=== PATIENT | female | born 2000 | race Caucasian/White ===

== ENCOUNTER 2020-01-07 12:53 | Emergency (ER) | payer OTHER, MEDICAID, SELFPAY ==
[2020-01-07 12:59] VITALS: BP 136/88; PULSE 81; RESP 28; TEMP 36.4; O2SAT 100
[2020-01-07] MEDS: ONDANSETRON 4 MG/2 ML INJ IV ×2 (13:19→16:45)
[2020-01-07] MEDS: SODIUM CHLORIDE 0.9% 1,000 ML 1000 ML IV (13:19)
[2020-01-07] MEDS: PANTOPRAZOLE 40 MG VIAL IV (13:20)
[2020-01-07 13:22] LABS: Add Manual Diff / Slide Review NO; Basophils Absolute Auto 0 /uL (0-100); Basophils Percent Auto 0.4 % (0-2); Eosinophils Absolute Auto 600 /uL (0-450); Eosinophils Percent Auto 5.5 % (2-4); Hematocrit 44.5 % (36-46); Hemoglobin 14.6 g/dL (12.0-16.0); Lymphocytes Absolute Auto 2400 /uL (1100-4500); Lymphocytes Percent Auto 21.5 % (25-40); Mean Corpuscular HGB Conc 32.9 % (30-36); Mean Corpuscular Hemoglobin 29.7 PG (26-34); Mean Corpuscular Volume 90.3 fL (80-100); Monocytes Absolute Auto 700 /uL (0-900); Monocytes Percent Auto 6.3 % (3-14); Neutrophils Absolute Auto 7600 /uL (1500-7000); Neutrophils Percent Auto 66.3 % (50-75); Platelet Count 373 X10^3/uL (150-400); Red Blood Cell Count 4.93 X10^6/uL (4.0-5.2); Red Cell Distribution Width 13.9 % (11.6-14.8); White Blood Cell Count 11.4 X10^3/uL (4.5-11.0)
[2020-01-07 13:25] VITALS: BP 127/73; PULSE 84; RESP 20; O2SAT 99
[2020-01-07 13:33] LABS: Prothrombin Time 11.9 SECONDS (10.1-12.7)
[2020-01-07 13:35] LABS: PTT Partial Thromboplastin Tim 34 SECONDS (26.4-36.2)
[2020-01-07 13:36] LABS: Albumin 4.9 g/dL (3.5-5.0); Albumin Globulin Ratio 1.3 (1.0-2.8); Alkaline Phosphatase 107 U/L (38-126); Aspartate Aminotransferase 33 IU/L (14-36); BUN Creatinine Ratio 9.2 (6-22); Bilirubin Total 0.7 mg/dL (0.2-1.3); Blood Urea Nitrogen 6 mg/dL (7-17); Calcium 10.2 mg/dL (8.4-10.2); Carbon Dioxide 16 mmol/L (22-32); Chloride 108 mmol/L (98-107); Estimated Glomerular Filt Rate > 60.0 mL/min (>60); Globulin 3.8 g/dL (1.7-4.1); Glucose 147 mg/dL (70-100); Lipase 41 U/L (23-300); Potassium 4.2 mmol/L (3.4-5.1); Sodium 141 mmol/L (137-145); Total Protein 8.7 g/dL (6.3-8.2)
[2020-01-07 13:42] LABS: Alanine Aminotransferase 30 IU/L (<35); HEMOLYSIS 24 (0-50)
[2020-01-07] MEDS: METOCLOPRAMIDE 10 MG/2 ML INJ IV (13:49)
[2020-01-07] MEDS: diphenhydrAMINE 50 MG/ML VIAL 25 MG IV ×2 (13:49→18:23)
[2020-01-07] MEDS: LORazepam 2 MG/ML INJ 1 MG IV (14:26)
[2020-01-07 14:48] LABS: Creatine Kinase 79 U/L (30-135)
[2020-01-07 15:00] LABS: Pregnancy Test Serum,Qual Negative (Negative)
[2020-01-07 15:01] LABS: Troponin I < 0.012 ng/mL (0.01-0.034)
--- NOTE | 2020-01-07 15:02 | DI.RAD.S_ITS ---
PROCEDURE: XR CHEST 1V INDICATIONS: chest pain, nausea/vomiting TECHNIQUE: One view of the chest was acquired. COMPARISON: [facility], CHEST 2 VIEW, 09/21/2014, 0:31. [facility], CHEST 1 VIEW, 09/22/2014, 6:54. FINDINGS: Surgical changes and devices: None. Lungs and pleura: An incomplete inspiratory result is noted, causing a crowded appearance to the lung markings. No focal infiltrates are seen. No pneumothorax or significant pleural effusions are seen. Mediastinum: Mediastinal contours appear normal. Heart size is normal. Bones and chest wall: No suspicious bony lesions. Overlying soft tissues appear unremarkable. IMPRESSION: Limited portable chest examination, without a significant cardiopulmonary abnormality identified. Dictated by: Marlon Mae M.D. on 01/07/2020 at 14:19 Approved by: Marlon Mae M.D. on 01/07/2020 at 14:19
--- NOTE | 2020-01-07 15:03 | ED_ITS ---
HPI - Abdominal Pain <Urbano Lemon [facility] - Last Filed: 01/07/20 23:49> General Chief Complaint: Abdominal Pain Stated Complaint: intestinal pain,heart hurts Time Seen by Provider: 01/07/20 13:02 Source: patient Mode of arrival: Ambulatory Limitations: no limitations History of Present Illness HPI narrative: This is a 19-year-old female, who vapes nicotine and regularly dabbing marijuana concentrates presents to ED with mother with chief complain of nausea and emesis for 4 times since this morning at 8:00 a.m. with chest/epigastric throbbing pain, ripping out like low mid abdominal pain. Emesis was consist of foamy mucus and bile without blood. Patient denies previous history of similar symptoms. Patient denies fever but reports chills. Patient states has not eating solid foods after midnight after she tried crackers. Patient has significant medical history as pneumonia at age 14. LMP was 2 weeks ago which was normal flow. Patient denies urinary symptoms such as hematuria, frequency, urgency, dysuria or back pain. Patient denies diarrhea, recent respiratory illness, known exposure to Covid. Last bowel movement before coming into ED which was soft consistency. Related Data Previous Rx's Medication Instructions Recorded ondansetron 4 mg PO QID PRN #10 tab 01/07/20 promethazine 25 mg WY Q6H PRN #1 each 01/07/20 Allergies Allergy/AdvReac Type Severity Reaction Status Date / Time No Known Drug Allergies Allergy Verified 01/07/20 13:02 Review of Systems <Urbano Lemon [facility] - Last Filed: 01/07/20 23:49> Review of Systems Narrative: General: Denies fever, (+) chills, fatigue, malaise, sweats. HEENT: Denies sinus pain, ear pain, sore throat, difficulty swallowing, dizziness. Respiratory: Denies dyspnea, cough, wheezing, hemoptysis, sputum. Cardiovascular: See HPI. Gastrointestinal: See HPI : Denies dysuria, frequency, incontinence, hematuria, urinary retention. Musculoskeletal: Denies weakness, joint pain or bony pain. Skin: Denies rash, skin lesions, or other. Neurologic: Denies weakness, headache, numbness, change in speech, confusion, seizures, incoordination. Psychiatric: No concerning psychosocial issues. 12-point review of systems is negative except for those stated above. Patient History <NANCY Steinberg - Last Filed: 01/07/20 23:49> Medical History Pneumonia (Acute) Social History Smoking Status: Current every day smoker Smoking Status: Current every day smoker tobacco type: vaping alcohol intake frequency: 0-2 drinks per day Substance Use Type: marijuana Exam <NANCY Steinberg - Last Filed: 01/07/20 23:49> Narrative Exam Narrative: GEN: Alert, oriented x 3, ill appearing and nourished, and in moderate distress. Hyperventilation, pale, anxious, in cold sweats while dry heaving. Head: Normal cephalic, atraumatic. No scalp or temporal tenderness, palpable mass or rash. EYES: Pupils are equal, round, and reactive to light and accommodation. Extraocular muscles are intact bilaterally. There is no subconjunctival hemorrhage, exudate and sclera non-icteric. ENT: Hearing grossly intact. Nose without bleeding, purulent discharge. Mucous membrane dry, no mucosal lesion. Throat without erythema, tonsillar hypertrophy or exudate. Uvula in midline, airway patent. Neck: Trachea in midline. No JVD, non-tender without lymphadenopathy. No masses or thyroid megaly. Supple, non-tender and no meningeal signs. CARDIAC: Normal regular rate and rhythm without murmurs, gallops, or rubs. No chest wall tenderness. No peripheral edema, cyanosis or pallor. Capillary ref ill is less than 2 seconds. RESPIRATORY: Lungs are clear to auscultate bilaterally. No cough, wheezes, rales, or rhonchi. No stridor, respiratory distress, increase work of breathing, or accessary muscle used. ABD: Abdomen soft, tender to palpate in abdomen and non-distended. No guarding or rebound tenderness to palpate. Bowel sounds are normal in all 4 quadrants. There is no palpable masses or organomegaly. EXT: Full painless ROM of all extremities with no loss of sensation, strength, effusion or edema. SKIN: Pale, cool, diaphoresis. No erythema, lesions or rash over visible areas. BACK: Nontender without deformity or crepitance. No flank tenderness. NEUROLOGICAL: Alert and oriented to place, time and person. Sensation and motor function intact bilaterally. No facial droops, dysphasia. PSYCHIATRIC: Anxious without hallucinations. Cooperative. Initial Vital Signs Initial Vital Signs: Vital Signs Temperature 97.5 F L 01/07/20 12:59 Pulse Rate 81 01/07/20 12:59 Respiratory Rate 28 H 01/07/20 12:59 Blood Pressure 136/88 01/07/20 12:59 Pulse Oximetry 100 01/07/20 12:59 <Una Valentine MD - Last Filed: 01/08/20 07:22> Initial Vital Signs Initial Vital Signs: Vital Signs Temperature 97.5 F L 01/07/20 12:59 Pulse Rate 81 01/07/20 12:59 Respiratory Rate 28 H 01/07/20 12:59 Blood Pressure 136/88 01/07/20 12:59 Pulse Oximetry 100 01/07/20 12:59 Scores <NANCY Steinberg - Last Filed: 01/07/20 23:49> GCS Vaishali coma scale eye opening: Spontaneous Vaishali coma scale verbal response: Orientated [place] coma scale motor response: Obey commands Vaishali coma scale total score: 15 Course <NANCY Steinberg - Last Filed: 01/07/20 23:49> Course Course Narrative: Orders Ordered: Discontinued Medications Diphenhydramine HCl (Benadryl) 25 mg IV NOW ONE Stop: 01/07/20 13:44 Last Admin: 01/07/20 13:49 Dose: 25 mg Documented by: MELVIN Diphenhydramine HCl (Benadryl) 25 mg IV NOW ONE Stop: 01/07/20 18:08 Last Admin: 01/07/20 18:23 Dose: 25 mg Documented by: MARYONER Haloperidol (Haldol) 5 mg IV NOW ONE Stop: 01/07/20 18:08 Last Admin: 01/07/20 18:23 Dose: 5 mg Documented by: MELVIN Sodium Chloride (Normal Saline 0.9%) 1,000 mls @ 1,000 mls/hr IV BOLUS ONE Stop: 01/07/20 14:11 Last Infusion: 01/07/20 14:24 Dose: 0 mls/hr Documented by: Admin: 01/07/20 13:19 Dose: 1,000 mls/hr Documented by: MAXIMILIAN Sodium Chloride (Normal Saline 0.9%) 500 mls @ 1,000 mls/hr IV BOLUS ONE Stop: 01/07/20 18:36 Last Admin: 01/07/20 18:24 Dose: 1,000 mls/hr Documented by: MELVIN Lorazepam (Ativan) 1 mg IV NOW ONE Stop: 01/07/20 14:21 Last Admin: 01/07/20 14:26 Dose: 1 mg Documented by: GREGG Metoclopramide HCl (Reglan) 10 mg IV NOW ONE Stop: 01/07/20 13:44 Last Admin: 01/07/20 13:49 Dose: 10 mg Documented by: MELVIN Ondansetron HCl (Zofran) 4 mg IV NOW ONE Stop: 01/07/20 13:04 Last Admin: 01/07/20 13:19 Dose: 4 mg Documented by: MAXIMILIAN Ondansetron HCl (Zofran) 4 mg IV NOW ONE Stop: 01/07/20 15:42 Last Admin: 01/07/20 16:45 Dose: 4 mg Documented by: GREGG Pantoprazole Sodium (Protonix) 40 mg IV NOW ONE Stop: 01/07/20 13:16 Last Admin: 01/07/20 13:20 Dose: 40 mg Documented by: MAXIMILIAN Reevaluation(s) Reevaluation #1: The patient reports chest and abd pain improved to 1/10 and nausea much improved Time: 15:00 Reevaluation #2: The patient has recurring vomiting at 1530. Ordered 2nd dose of Zofran and US of abdomen to r/u gallbladder pathology Time: 15:30 Vital Signs Vital signs: Vital Signs - 8 hr 01/07/20 17:45 01/07/20 19:21 Pulse Rate 89 85 Respiratory Rate 23 20 Blood Pressure [Left Arm] 119/77 130/68 Pulse Oximetry 98 98 <Una Valentine MD - Last Filed: 01/08/20 07:22> Orders Ordered: Discontinued Medications Diphenhydramine HCl (Benadryl) 25 mg IV NOW ONE Stop: 01/07/20 13:44 Last Admin: 01/07/20 13:49 Dose: 25 mg Documented by: MELVIN Diphenhydramine HCl (Benadryl) 25 mg IV NOW ONE Stop: 01/07/20 18:08 Last Admin: 01/07/20 18:23 Dose: 25 mg Documented by: MELVIN Haloperidol (Haldol) 5 mg IV NOW ONE Stop: 01/07/20 18:08 Last Admin: 01/07/20 18:23 Dose: 5 mg Documented by: MELVIN Sodium Chloride (Normal Saline 0.9%) 1,000 mls @ 1,000 mls/hr IV BOLUS ONE Stop: 01/07/20 14:11 Last Infusion: 01/07/20 14:24 Dose: 0 mls/hr Documented by: Admin: 01/07/20 13:19 Dose: 1,000 mls/hr Documented by: MAXIMILIAN Sodium Chloride (Normal Saline 0.9%) 500 mls @ 1,000 mls/hr IV BOLUS ONE Stop: 01/07/20 18:36 Last Admin: 01/07/20 18:24 Dose: 1,000 mls/hr Documented by: MELVIN Lorazepam (Ativan) 1 mg IV NOW ONE Stop: 01/07/20 14:21 Last Admin: 01/07/20 14:26 Dose: 1 mg Documented by: GREGG Metoclopramide HCl (Reglan) 10 mg IV NOW ONE Stop: 01/07/20 13:44 Last Admin: 01/07/20 13:49 Dose: 10 mg Documented by: MELVIN Ondansetron HCl (Zofran) 4 mg IV NOW ONE Stop: 01/07/20 13:04 Last Admin: 01/07/20 13:19 Dose: 4 mg Documented by: MAXIMILIAN Ondansetron HCl (Zofran) 4 mg IV NOW ONE Stop: 01/07/20 15:42 Last Admin: 01/07/20 16:45 Dose: 4 mg Documented by: GREGG Pantoprazole Sodium (Protonix) 40 mg IV NOW ONE Stop: 01/07/20 13:16 Last Admin: 01/07/20 13:20 Dose: 40 mg Documented by: MAXIMILIAN Vital Signs Vital signs: Vital Signs - 8 hr 01/07/20 17:45 01/07/20 19:21 Pulse Rate 89 85 Respiratory Rate 23 20 Blood Pressure [Left Arm] 119/77 130/68 Pulse Oximetry 98 98 MDM - Abdominal Pain <Urbano MorinCoryRomarioNANCY - Last Filed: 01/07/20 23:49> Differential Diagnosis Differential diagnosis: Likely gastroenteritis, pancreatitis, small bowel obstruction and other (Cholecystitis, cannabinoid hyperemesis syndrome) Medical Records Attestation: I reviewed the patient's medical records. Lab Data Attestation: I reviewed the patient's lab results. Result diagrams: 01/07/20 13:05 01/07/20 13:05 Labs: Lab Results 01/07/20 01/07/20 01/07/20 Range/Units 13:05 13:05 13:05 WBC 11.4 H (4.5-11.0) X10^3/uL RBC 4.93 (4.0-5.2) X10^6/uL Hgb 14.6 (12.0-16.0) g/dL Hct 44.5 (36-46) % MCV 90.3 (80-100) fL MCH 29.7 (26-34) PG MCHC 32.9 (30-36) % RDW 13.9 (11.6-14.8) % Plt Count 373 (150-400) X10^3/uL Neut % (Auto) 66.3 (50-75) % Lymph % (Auto) 21.5 L (25-40) % Humphreys % (Auto) 6.3 (3-14) % Eos % (Auto) 5.5 H (2-4) % Baso % (Auto) 0.4 (0-2) % Neut # (Auto) 7600 H (4069-4902) /uL Lymph # (Auto) 2400 (7869-6107) /uL Humphreys # (Auto) 700 (0-900) /uL Eos # (Auto) 600 H (0-450) /uL Baso # (Auto) 0 (0-100) /uL PT 11.9 (10.1-12.7) SECONDS INR 1.0 (0.9-1.3) APTT 34 (26.4-36.2) SECONDS Sodium 141 (137-145) mmol/L Potassium 4.2 (3.4-5.1) mmol/L Chloride 108 H (98-107) mmol/L Carbon Dioxide 16 L (22-32) mmol/L BUN 6 L (7-17) mg/dL Creatinine 0.65 (0.52-1.04) mg/dL Estimated GFR > 60.0 (>60) mL/min BUN/Creatinine Ratio 9.2 (6-22) Glucose 147 H (70-100) mg/dL Calcium 10.2 (8.4-10.2) mg/dL Total Bilirubin 0.7 (0.2-1.3) mg/dL AST 33 (14-36) IU/L ALT 30 (<35) IU/L Alkaline Phosphatase 107 (38-126) U/L Total Creatine Kinase (30-135) U/L CK-MB (CK-2) CK-MB (CK-2) Rel Index Troponin I (0.01-0.034) ng/mL Total Protein 8.7 H (6.3-8.2) g/dL Albumin 4.9 (3.5-5.0) g/dL Globulin 3.8 (1.7-4.1) g/dL Albumin/Globulin Ratio 1.3 (1.0-2.8) Lipase 41 (23-300) U/L Serum , Qual (Negative) 01/07/20 01/07/20 Range/Units 13:05 13:05 WBC (4.5-11.0) X10^3/uL RBC (4.0-5.2) X10^6/uL Hgb (12.0-16.0) g/dL Hct (36-46) % MCV (80-100) fL MCH (26-34) PG MCHC (30-36) % RDW (11.6-14.8) % Plt Count (150-400) X10^3/uL Neut % (Auto) (50-75) % Lymph % (Auto) (25-40) % Humphreys % (Auto) (3-14) % Eos % (Auto) (2-4) % Baso % (Auto) (0-2) % Neut # (Auto) (1869-9359) /uL Lymph # (Auto) (4255-9478) /uL Humphreys # (Auto) (0-900) /uL Eos # (Auto) (0-450) /uL Baso # (Auto) (0-100) /uL PT (10.1-12.7) SECONDS INR (0.9-1.3) APTT (26.4-36.2) SECONDS Sodium (137-145) mmol/L Potassium (3.4-5.1) mmol/L Chloride (98-107) mmol/L Carbon Dioxide (22-32) mmol/L BUN (7-17) mg/dL Creatinine (0.52-1.04) mg/dL Estimated GFR (>60) mL/min BUN/Creatinine Ratio (6-22) Glucose (70-100) mg/dL Calcium (8.4-10.2) mg/dL Total Bilirubin (0.2-1.3) mg/dL AST (14-36) IU/L ALT (<35) IU/L Alkaline Phosphatase (38-126) U/L Total Creatine Kinase 79 (30-135) U/L CK-MB (CK-2) TNP CK-MB (CK-2) Rel Index TNP Troponin I < 0.012 (0.01-0.034) ng/mL Total Protein (6.3-8.2) g/dL Albumin (3.5-5.0) g/dL Globulin (1.7-4.1) g/dL Albumin/Globulin Ratio (1.0-2.8) Lipase (23-300) U/L Serum , Qual Negative (Negative) Point of care testing: Point of Care Testing Test Results Negative Urine Dip Bedside Urine Glucose Negative Bedside Urine Bilirubin - Negative Bedside Urine Ketone ++ 40 Urine Specific Garretson 1.015 Bedside Urine pH 7.5 Bedside Urine Protein +/- 15 Bedside Urine Urobilinogen - Negative Bedside Urine Nitrite - Negative Bedside Urine Leukocytes - Negative Esterase Imaging Data Chest x-ray: Radiologist's Impression: [address] [address] XRay Report Signed Patient: Angelica Cannon CMR#: [id number] : 2000Acct:[id number] Age/Sex: te of Service: 01/07/20 Loc: ED Accession Number: [id number] Procedure: XR chest 1V Ordering Provider: Urbano Lemon PROCEDURE: XR CHEST 1V INDICATIONS: chest pain, nausea/vomiting TECHNIQUE: One view of the chest was acquired. COMPARISON: [facility], CHEST 2 VIEW, 09/21/2014, 0:31. [facility], CHEST 1 VIEW, 09/22/2014, 6:54. FINDINGS: Surgical changes and devices: None. Lungs and pleura: An incomplete inspiratory result is noted, causing a crowded appearance to the lung markings. No focal infiltrates are seen. No pneumo thorax or significant pleural effusions are seen. Mediastinum: Mediastinal contours appear normal. Heart size is normal. Bones and chest wall: No suspicious bony lesions. Overlying soft tissues appear unremarkable. IMPRESSION: Limited portable chest examination, without a significant cardiopulmonary abnormality identified. Dictated by: Marlon Mae M.D. on 01/07/2020 at 14:19 Approved by: Marlon Mae M.D. on 01/07/2020 at 14:19 US - abdomen: My Impression: [place] [address] Ultrasound Report Signed Patient: Angelica Cannon CMR#: [id number] : 2000Acct:[id number] Age/Sex: 19 / FDate of Service: 01/07/20 Loc: ED Accession Number: [id number] Procedure: US abdomen limited Ordering Provider: Urbano Lemon PROCEDURE: US ABDOMEN LIMITED INDICATIONS: CHEST AND ABDOMINAL PAIN TECHNIQUE: Real-time focused scanning was performed of the abdomen, with image documentation. COMPARISON: [facility], XR CHEST 1V, 01/07/2020, 15:07. FINDINGS: The liver is normal in size and demonstrates no focal lesions. No findings of gallstones or sludge are seen. The gallbladder wall is not thickened, measuring 3 mm or less. No specific pericholecystic fluid is seen. The sonographic Argueta sign is negative. There is no biliary dilatation, the common bile duct measures 4 mm. No significant pancreatic abnormality is seen on these images. No free fluid is seen. IMPRESSION: The gallbladder demonstrates a normal sonographic appearance. No biliary dilatation is seen. Dictated by: Marlon Mae M.D. on 01/07/2020 at 15:36 Approved by: Marlon Mae M.D. on 01/07/2020 at 15:36 ECG Data Attestation: I personally reviewed and interpreted this ECG as follows: Prior ECG tracings: not available for review Interpretation: Normal sinus rhythm rate at 79. WY interval 150, QRS duration 78, QT/QTC 398/456. Normal axis. No ST elevation, nonspecific T-wave abnormality. MDM Narrative Medical decision making narrative: This is a 19-year-old female who presents to ED with chief complain of nausea and vomiting, epigastric, chest and mid abdominal discomfort. Patient states has not eaten since midnight last night. Patient appears to be in distress with vomiting, hyperventilation, pale and diaper restless when arrived in ED. EKG was normal sinus rhythm with nonspecific T-waves rate at 79. Urine test was negative for and positive for ketones without infections. Patient has mild leukocytosis of 11.4 unremarkable chemistries except mildly low carbon dioxide of 16 which is likely due to hyperventilation. Serum glucose was 147. Cardiac enzymes were negative. Normal lipase with normal liver function test. No indications of dehydration. Patient was hydrated with normal saline, IV Zofran and pantoprazole initially. Nausea was not relieved and patient was medicated with IV Benadryl and Reglan. For short. Patient reports improved symptoms and when patient was ready for discharge, patient had recurring nausea and vomiting with bile appearing liquid. Ultrasound test was ordered to rule out cholecystitis and it indicated normal findings without biliary dilation and no significant pancreatic abnormality was appreciated. Patient was given 2nd dose of Zofran for recurring nausea and vomiting which was ineffective to treat this. When patient finally received IV Benadryl and Haldol, patient was calm, able to rest and to tolerate small sips of water shortly after. Patient is afebrile with vital signs within normal limits. Cannabinoid hyperemesis syndrome was considered and advised to stop using dabbing marijuana. Patient discharged to home with Zofran ODT and Phenergan WY for recurring symptoms and return precautions were discussed. Patient and mother verbalized understanding and agreement with treatment plan. <Una Valentine MD - Last Filed: 01/08/20 07:22> Lab Data Labs: Lab Results 01/07/20 01/07/20 01/07/20 Range/Units 13:05 13:05 13:05 WBC 11.4 H (4.5-11.0) X10^3/uL RBC 4.93 (4.0-5.2) X10^6/uL Hgb 14.6 (12.0-16.0) g/dL Hct 44.5 (36-46) % MCV 90.3 (80-100) fL MCH 29.7 (26-34) PG MCHC 32.9 (30-36) % RDW 13.9 (11.6-14.8) % Plt Count 373 (150-400) X10^3/uL Neut % (Auto) 66.3 (50-75) % Lymph % (Auto) 21.5 L (25-40) % Humphreys % (Auto) 6.3 (3-14) % Eos % (Auto) 5.5 H (2-4) % Baso % (Auto) 0.4 (0-2) % Neut # (Auto) 7600 H (5975-1621) /uL Lymph # (Auto) 2400 (7384-4006) /uL Humphreys # (Auto) 700 (0-900) /uL Eos # (Auto) 600 H (0-450) /uL Baso # (Auto) 0 (0-100) /uL PT 11.9 (10.1-12.7) SECONDS INR 1.0 (0.9-1.3) APTT 34 (26.4-36.2) SECONDS Sodium 141 (137-145) mmol/L Potassium 4.2 (3.4-5.1) mmol/L Chloride 108 H (98-107) mmol/L Carbon Dioxide 16 L (22-32) mmol/L BUN 6 L (7-17) mg/dL Creatinine 0.65 (0.52-1.04) mg/dL Estimated GFR > 60.0 (>60) mL/min BUN/Creatinine Ratio 9.2 (6-22) Glucose 147 H (70-100) mg/dL Calcium 10.2 (8.4-10.2) mg/dL Total Bilirubin 0.7 (0.2-1.3) mg/dL AST 33 (14-36) IU/L ALT 30 (<35) IU/L Alkaline Phosphatase 107 (38-126) U/L Total Creatine Kinase (30-135) U/L CK-MB (CK-2) CK-MB (CK-2) Rel Index Troponin I (0.01-0.034) ng/mL Total Protein 8.7 H (6.3-8.2) g/dL Albumin 4.9 (3.5-5.0) g/dL Globulin 3.8 (1.7-4.1) g/dL Albumin/Globulin Ratio 1.3 (1.0-2.8) Lipase 41 (23-300) U/L Serum , Qual (Negative) 01/07/20 01/07/20 Range/Units 13:05 13:05 WBC (4.5-11.0) X10^3/uL RBC (4.0-5.2) X10^6/uL Hgb (12.0-16.0) g/dL Hct (36-46) % MCV (80-100) fL MCH (26-34) PG MCHC (30-36) % RDW (11.6-14.8) % Plt Count (150-400) X10^3/uL Neut % (Auto) (50-75) % Lymph % (Auto) (25-40) % Humphreys % (Auto) (3-14) % Eos % (Auto) (2-4) % Baso % (Auto) (0-2) % Neut # (Auto) (0128-9753) /uL Lymph # (Auto) (7053-9116) /uL Humphreys # (Auto) (0-900) /uL Eos # (Auto) (0-450) /uL Baso # (Auto) (0-100) /uL PT (10.1-12.7) SECONDS INR (0.9-1.3) APTT (26.4-36.2) SECONDS Sodium (137-145) mmol/L Potassium (3.4-5.1) mmol/L Chloride (98-107) mmol/L Carbon Dioxide (22-32) mmol/L BUN (7-17) mg/dL Creatinine (0.52-1.04) mg/dL Estimated GFR (>60) mL/min BUN/Creatinine Ratio (6-22) Glucose (70-100) mg/dL Calcium (8.4-10.2) mg/dL Total Bilirubin (0.2-1.3) mg/dL AST (14-36) IU/L ALT (<35) IU/L Alkaline Phosphatase (38-126) U/L Total Creatine Kinase 79 (30-135) U/L CK-MB (CK-2) TNP CK-MB (CK-2) Rel Index TNP Troponin I < 0.012 (0.01-0.034) ng/mL Total Protein (6.3-8.2) g/dL Albumin (3.5-5.0) g/dL Globulin (1.7-4.1) g/dL Albumin/Globulin Ratio (1.0-2.8) Lipase (23-300) U/L Serum , Qual Negative (Negative) Point of care testing: Point of Care Testing Test Results Negative Urine Dip Bedside Urine Glucose Negative Bedside Urine Bilirubin - Negative Bedside Urine Ketone ++ 40 Urine Specific Garretson 1.015 Bedside Urine pH 7.5 Bedside Urine Protein +/- 15 Bedside Urine Urobilinogen - Negative Bedside Urine Nitrite - Negative Bedside Urine Leukocytes - Negative Esterase Discharge Plan Departure Patient Disposition: Home Clinical Impression: Nausea & vomiting Qualifiers: Vomiting type: bilious vomiting Qualified Code(s): R11.14 - Bilious vomiting Abdominal pain Qualifiers: Abdominal location: epigastric Qualified Code(s): R10.13 - Epigastric pain Discharge Date/Time: 01/07/20 19:28 Instructions: DI for Vomiting -- Adult, DI for Epigastric Pain Activity Restrictions/Additional Instructions: You have been diagnosed with [nausea, vomiting, epigastric pain. Lab test and ultrasound test for upper abdomen was unremarkable. You were hydrated with normal saline. You were given multiple doses of various anti nausea medication and pantoprazole while in ED. you are able to tolerate ice chips and small amount of liquid with up vomiting before discharged to home. Please stop using marijuana I think your symptoms is highly related to regular marijuana use.]. What to do: *Take your medications as directed. Zofran as needed for vomiting every 6 hours. You can also use Phenergan per rectum as needed for nausea and vomiting. Phenergan cause drowsiness so please take precaution not to drive, drink alcohol or operate heavy equipments. Phenergan and Zofran medication have been transmitted to [facility] in [place]. Please hydrate adequately with small sips frequently when her nausea is controlled. *Follow up with your primary care provider in 2-3 days, call for an appointment. Your provided with [facility] phone number to elect PCP. Let them know you were seen in the ED and that we asked you to be seen in follow up. *Return to ED if you have any new, worsening, or concerning symptoms, such as [chest pain, breathing difficulty, fever, increasing pain, unable to tolerate fluids or any acute concerns]. Prescriptions: New ondansetron 4 mg tablet,disintegrating 4 mg PO QID PRN (Reason: nausea and vomiting) Qty: 10 RF: 0 promethazine 25 mg suppository 25 mg WY Q6H PRN (Reason: nausea and vomiting) Qty: 1 RF: 0 Referrals: [facility] [Outside]
--- NOTE | 2020-01-07 15:41 | DI.US.S_ITS ---
PROCEDURE: US ABDOMEN LIMITED INDICATIONS: CHEST AND ABDOMINAL PAIN TECHNIQUE: Real-time focused scanning was performed of the abdomen, with image documentation. COMPARISON: [facility], CR, XR CHEST 1V, 01/07/2020, 15:07. FINDINGS: The liver is normal in size and demonstrates no focal lesions. No findings of gallstones or sludge are seen. The gallbladder wall is not thickened, measuring 3 mm or less. No specific pericholecystic fluid is seen. The sonographic Argueta sign is negative. There is no biliary dilatation, the common bile duct measures 4 mm. No significant pancreatic abnormality is seen on these images. No free fluid is seen. IMPRESSION: The gallbladder demonstrates a normal sonographic appearance. No biliary dilatation is seen. Dictated by: Marlon Mae M.D. on 01/07/2020 at 15:36 Approved by: Marlon Mae M.D. on 01/07/2020 at 15:36
--- NOTE | 2020-01-07 17:02 | PC.NURSE ---
right IV w/ large infiltration. IV removed.
[2020-01-07 17:45] VITALS: BP 119/77; PULSE 89; RESP 23; O2SAT 98
[2020-01-07] MEDS: HALOPERIDOL 5 MG/ML VIAL IV (18:23)
[2020-01-07] MEDS: SODIUM CHLORIDE 0.9% 500 ML 1000 ML IV (18:24)
[2020-01-07 19:21] VITALS: BP 130/68; PULSE 85; RESP 20; O2SAT 98
--- NOTE | 2020-01-07 19:26 | PC.NURSE ---
IV access was started at 1800 to the left ac, discontinued at discharge.
--- NOTE | 2020-01-07 19:30 | PC.NURSE ---
pt was able to keep ice chips and potato chips down that her mom gave her.
== END 2020-01-07 19:28 | disposition home or self-care (01) ==
PROVIDERS: Emergency Provider Nurse Practitioner Family
DX: R11.14 Bilious vomiting (principal); R10.13 Epigastric pain; R07.9 Chest pain, unspecified; F17.290 Nicotine dependence, other tobacco product, uncomplicated; F12.90 Cannabis use, unspecified, uncomplicated
CPT/HCPCS: 36415; 71045; 76705; 80053; 81003; 81025; 82550; 83690; 84484; 84703; 85025; 85610; 85730; 93005; 96361; 96374; 96375; 96376; 99285; C9113; J1200; J1630; J2060; J2405; J2765

== ENCOUNTER 2020-01-09 13:30 | Emergency (ER) | payer OTHER, MEDICAID, SELFPAY ==
[2020-01-09] VITALS (8 sets, daily range): BP systolic 119–134; BP diastolic 69–110; PULSE 69–100; RESP 12–41; TEMP 36.4; O2SAT 96–100
[2020-01-09] MEDS: diphenhydrAMINE 50 MG/ML VIAL IV (14:05)
[2020-01-09] MEDS: PANTOPRAZOLE 40 MG VIAL IV (14:05)
[2020-01-09 14:07] LABS: Add Manual Diff / Slide Review NO; Basophils Absolute Auto 0 /uL (0-100); Basophils Percent Auto 0.3 % (0-2); Eosinophils Absolute Auto 0 /uL (0-450); Eosinophils Percent Auto 0.1 % (2-4); Hematocrit 42.1 % (36-46); Hemoglobin 14.3 g/dL (12.0-16.0); Lymphocytes Absolute Auto 900 /uL (1100-4500); Lymphocytes Percent Auto 6.9 % (25-40); Mean Corpuscular HGB Conc 33.9 % (30-36); Mean Corpuscular Hemoglobin 30.2 PG (26-34); Mean Corpuscular Volume 89.1 fL (80-100); Monocytes Absolute Auto 400 /uL (0-900); Neutrophils Absolute Auto 11600 /uL (1500-7000); Neutrophils Percent Auto 89.7 % (50-75); Platelet Count 339 X10^3/uL (150-400); Red Blood Cell Count 4.72 X10^6/uL (4.0-5.2); Red Cell Distribution Width 13.9 % (11.6-14.8); White Blood Cell Count 12.9 X10^3/uL (4.5-11.0)
[2020-01-09] MEDS: SODIUM CHLORIDE 0.9% 1,000 ML 1000 ML IV ×2 (14:07→16:14)
[2020-01-09 14:18] LABS: Albumin 4.9 g/dL (3.5-5.0); Albumin Globulin Ratio 1.4 (1.0-2.8); Alkaline Phosphatase 100 U/L (38-126); Amylase 72 U/L (30-110); Aspartate Aminotransferase 33 IU/L (14-36); BUN Creatinine Ratio 16.9 (6-22); Bilirubin Total 0.8 mg/dL (0.2-1.3); Blood Urea Nitrogen 10 mg/dL (7-17); Calcium 9.9 mg/dL (8.4-10.2); Carbon Dioxide 17 mmol/L (22-32); Chloride 103 mmol/L (98-107); Creatine Kinase 184 U/L (30-135); Estimated Glomerular Filt Rate > 60.0 mL/min (>60); Globulin 3.6 g/dL (1.7-4.1); Glucose 129 mg/dL (70-100); HEMOLYSIS < 15 (0-50); Lipase 86 U/L (23-300); Magnesium 1.7 mg/dL (1.6-2.3); Potassium 3.6 mmol/L (3.4-5.1); Sodium 137 mmol/L (137-145); Total Protein 8.5 g/dL (6.3-8.2)
[2020-01-09 14:19] LABS: Lactate (Lactic Acid) 3.8 mmol/L (0.7-2.1)
[2020-01-09] MEDS: METOCLOPRAMIDE 10 MG/2 ML INJ IV (14:20)
[2020-01-09 14:25] LABS: Alanine Aminotransferase 31 IU/L (<35)
[2020-01-09 14:29] LABS: D Dimer < 200 ng/mL (<230); Troponin I < 0.012 ng/mL (0.01-0.034)
[2020-01-09 14:33] LABS: CKMB % Relative Index 0.5 % (1.5-5.0); Creatine Kinase MB 0.88 ng/mL (<2.37)
--- NOTE | 2020-01-09 14:52 | ED.ABDPAIN ---
HPI - Abdominal Pain <MARÍA Edmondson- - Last Filed: 01/09/20 19:30> General Chief Complaint: Abdominal Pain Stated Complaint: Chest hurting thight, SOB, nausea Time Seen by Provider: 01/09/20 13:31 Source: family Mode of arrival: Family Vehicle Limitations: no limitations History of Present Illness HPI narrative: The patient is a 19-year-old female current everyday smoker with history of abdominal pain and nausea vomiting who presents with a chief complaint of nausea, vomiting, shortness of breath, chest tightness and epigastric abdominal pain. She was seen at this facility 2 days ago for similar complaints. She denies any fever. When she was seen 2 days ago, she had a chest x-ray, right upper quadrant ultrasound, lab work and was discharged. She states that she has tried to use her Zofran once this morning at approximately 7:00 a.m. and vomited it up. She is unclear whether not she has had a Phenergan suppository. The patient states she feels like she can not take a deep breath because her pain is so bad, and that she is having severe pain in her chest. She states it is nonradiating. Related Data Previous Rx's Medication Instructions Recorded ondansetron 4 mg PO QID PRN #10 tab 01/07/20 promethazine 25 mg [place] Q6H PRN #1 each 01/07/20 metoclopramide HCl [Reglan] 10 mg PO Q6H PRN #14 tab 01/09/20 Allergies Allergy/AdvReac Type Severity Reaction Status Date / Time No Known Drug Allergies Allergy Verified 01/07/20 13:02 Review of Systems <HORACIO Edmondson - Last Filed: 01/09/20 19:30> Review of Systems Narrative: GENERAL: Denies chills, fatigue, malaise, fever, sweats. HEENT: Denies sinus pain, ear pain, sore throat, difficulty swallowing, dizziness. RESPIRATORY: See HPI CARDIOVASCULAR: See HPI GASTROINTESTINAL: See HPI : Denies dysuria, frequency, incontinence, hematuria, urinary retention. MUSCULOSKELETAL: denies weakness, joint pain, or bony pain SKIN: Denies rash, skin lesions, or other NEUROLOGIC: Denies weakness, headache, numbness, change in speech, confusion, seizures, incoordination. PSYCHIATRIC: No concerning psychosocial issues. 12 point review of systems is negative except for those stated above Patient History <HORACIO Edmondson - Last Filed: 01/09/20 19:30> Medical History Pneumonia (Acute) Social History Smoking Status: Current every day smoker Smoking Status: Current every day smoker tobacco type: vaping alcohol intake frequency: 0-2 drinks per day Substance Use Type: marijuana Exam <HORACIO Edmondson - Last Filed: 01/09/20 19:30> Narrative Exam Narrative: GENERAL: This is a well-nourished, well-developed patient, appears uncomfortable HEAD: Atraumatic. Normocephalic. No temporal or scalp tenderness. EYES: Pupils equal round and reactive. Extraocular motions intact. No scleral icterus. No injection or drainage. ENT: Nose without bleeding, purulent drainage or septal hematoma. Throat without erythema, tonsillar hypertrophy or exudate. Uvula midline. Airway patent. NECK: Trachea midline. No JVD or lymphadenopathy. Supple, nontender, no meningeal signs. CARDIOVASCULAR: Tachycardic rate and regular rhythm RESPIRATORY: Clear to auscultation. Breath sounds equal bilaterally. No wheezes, rales, or rhonchi. No cough. No increased respiratory effort. No accessory muscle use. GASTROINTESTINAL: Abdomen soft, diffusely tender, nondistended. No hepato-splenomegaly, or palpable masses. No guarding. Active bowel sounds all 4 quadrants EXTREMITIES: No clubbing, cyanosis, or edema. No joint tenderness, effusion, or edema noted. BACK: Nontender without deformity or crepitance. No flank tenderness. NEURO: AOx3. SKIN: No rash or erythema on visible skin Initial Vital Signs Initial Vital Signs: Vital Signs Temperature 97.6 F 01/09/20 13:36 Pulse Rate 88 01/09/20 13:36 Respiratory Rate 23 01/09/20 13:36 Pulse Oximetry 100 01/09/20 13:36 <Lex Rojas MD - Last Filed: 01/10/20 08:43> Initial Vital Signs Initial Vital Signs: Vital Signs Temperature 97.6 F 01/09/20 13:36 Pulse Rate 88 01/09/20 13:36 Respiratory Rate 23 01/09/20 13:36 Pulse Oximetry 100 01/09/20 13:36 Course <MARÍA Edmondson- - Last Filed: 01/09/20 19:30> Orders Ordered: Discontinued Medications Al Hydrox/Mg Hydrox/Simethicone 20 ml/ Lidocaine HCl 15 ml 0 ml PO NOW ONE Stop: 01/09/20 16:05 Last Admin: 01/09/20 16:11 Dose: 20 ml Documented by: KIMBERLY Diphenhydramine HCl (Benadryl) 50 mg IV NOW ONE Stop: 01/09/20 13:59 Last Admin: 01/09/20 14:05 Dose: 50 mg Documented by: KIMBERLY Hydromorphone HCl (Dilaudid) 0.5 mg IV NOW ONE Stop: 01/09/20 16:05 Last Admin: 01/09/20 16:10 Dose: 0.5 mg Documented by: KIMBERLY Sodium Chloride (Normal Saline 0.9%) 1,000 mls @ 1,000 mls/hr IV BOLUS ONE Stop: 01/09/20 14:51 Last Admin: 01/09/20 14:07 Dose: 1,000 mls/hr Documented by: KIMBERLY Sodium Chloride (Normal Saline 0.9%) 1,000 mls @ 1,000 mls/hr IV BOLUS ONE Stop: 01/09/20 15:20 Last Infusion: 01/09/20 18:03 Dose: 0 mls/hr Documented by: Admin: 01/09/20 16:14 Dose: 1,000 mls/hr Documented by: KIMBERLY Lorazepam (Ativan) 1 mg IV NOW ONE Stop: 01/09/20 14:51 Last Admin: 01/09/20 15:01 Dose: 1 mg Documented by: KIMBERLY Metoclopramide HCl (Reglan) 10 mg IV NOW ONE Stop: 01/09/20 14:15 Last Admin: 01/09/20 14:20 Dose: 10 mg Documented by: KIMBERLY Ondansetron HCl (Zofran) 4 mg IV NOW ONE Stop: 01/09/20 14:51 Last Admin: 01/09/20 16:52 Dose: Not Given Documented by: DELBERT Pantoprazole Sodium (Protonix) 40 mg IV NOW ONE Stop: 01/09/20 13:53 Last Admin: 01/09/20 14:05 Dose: 40 mg Documented by: KIMBERLY Vital Signs Vital signs: Vital Signs - 8 hr 01/09/20 13:36 01/09/20 13:43 01/09/20 15:00 Temperature 97.6 F Pulse Rate 88 99 H 73 Respiratory Rate 23 41 H 16 Blood Pressure [Right Arm] 134/72 131/110 H Pulse Oximetry 100 99 99 01/09/20 16:30 01/09/20 17:06 01/09/20 18:09 Temperature Pulse Rate 83 69 96 H Respiratory Rate 12 18 22 Blood Pressure [Right Arm] 120/70 128/91 H 125/69 Pulse Oximetry 99 98 96 01/09/20 19:20 Temperature Pulse Rate 100 H Respiratory Rate 18 Blood Pressure [Right Arm] 128/70 Pulse Oximetry 97 <Lex Rojas MD - Last Filed: 01/10/20 08:43> Orders Ordered: Discontinued Medications Al Hydrox/Mg Hydrox/Simethicone 20 ml/ Lidocaine HCl 15 ml 0 ml PO NOW ONE Stop: 01/09/20 16:05 Last Admin: 01/09/20 16:11 Dose: 20 ml Documented by: KIMBERLY Diphenhydramine HCl (Benadryl) 50 mg IV NOW ONE Stop: 01/09/20 13:59 Last Admin: 01/09/20 14:05 Dose: 50 mg Documented by: KIMBERLY Hydromorphone HCl (Dilaudid) 0.5 mg IV NOW ONE Stop: 01/09/20 16:05 Last Admin: 01/09/20 16:10 Dose: 0.5 mg Documented by: KIMBERLY Sodium Chloride (Normal Saline 0.9%) 1,000 mls @ 1,000 mls/hr IV BOLUS ONE Stop: 01/09/20 14:51 Last Admin: 01/09/20 14:07 Dose: 1,000 mls/hr Documented by: KIMBERLY Sodium Chloride (Normal Saline 0.9%) 1,000 mls @ 1,000 mls/hr IV BOLUS ONE Stop: 01/09/20 15:20 Last Infusion: 01/09/20 18:03 Dose: 0 mls/hr Documented by: Admin: 01/09/20 16:14 Dose: 1,000 mls/hr Documented by: KIMBERLY Lorazepam (Ativan) 1 mg IV NOW ONE Stop: 01/09/20 14:51 Last Admin: 01/09/20 15:01 Dose: 1 mg Documented by: KIMBERLY Metoclopramide HCl (Reglan) 10 mg IV NOW ONE Stop: 01/09/20 14:15 Last Admin: 01/09/20 14:20 Dose: 10 mg Documented by: KIMBERLY Ondansetron HCl (Zofran) 4 mg IV NOW ONE Stop: 01/09/20 14:51 Last Admin: 01/09/20 16:52 Dose: Not Given Documented by: DELBERT Pantoprazole Sodium (Protonix) 40 mg IV NOW ONE Stop: 01/09/20 13:53 Last Admin: 01/09/20 14:05 Dose: 40 mg Documented by: KIMBERLY Vital Signs Vital signs: Vital Signs - 8 hr 01/09/20 13:36 01/09/20 13:43 01/09/20 15:00 Temperature 97.6 F Pulse Rate 88 99 H 73 Respiratory Rate 23 41 H 16 Blood Pressure [Right Arm] 134/72 131/110 H Pulse Oximetry 100 99 99 01/09/20 16:30 01/09/20 17:06 01/09/20 18:09 Temperature Pulse Rate 83 69 96 H Respiratory Rate 12 18 22 Blood Pressure [Right Arm] 120/70 128/91 H 125/69 Pulse Oximetry 99 98 96 01/09/20 19:20 Temperature Pulse Rate 100 H Respiratory Rate 18 Blood Pressure [Right Arm] 128/70 Pulse Oximetry 97 MDM - Abdominal Pain <MARÍA Edmondson-BC - Last Filed: 01/09/20 19:30> Lab Data Result diagrams: 01/09/20 13:56 01/09/20 13:56 Labs: Lab Results 01/09/20 01/09/20 01/09/20 Range/Units 13:56 13:56 13:56 WBC 12.9 H (4.5-11.0) X10^3/uL RBC 4.72 (4.0-5.2) X10^6/uL Hgb 14.3 (12.0-16.0) g/dL Hct 42.1 (36-46) % MCV 89.1 (80-100) fL MCH 30.2 (26-34) PG MCHC 33.9 (30-36) % RDW 13.9 (11.6-14.8) % Plt Count 339 (150-400) X10^3/uL Neut % (Auto) 89.7 H (50-75) % Lymph % (Auto) 6.9 L (25-40) % [place] % (Auto) 3.0 (3-14) % Eos % (Auto) 0.1 L (2-4) % Baso % (Auto) 0.3 (0-2) % Neut # (Auto) 79361 H (2764-7908) /uL Lymph # (Auto) 900 L (4427-9418) /uL [place] # (Auto) 400 (0-900) /uL Eos # (Auto) 0 (0-450) /uL Baso # (Auto) 0 (0-100) /uL D-Dimer < 200 (<230) ng/mL Sodium 137 (137-145) mmol/L Potassium 3.6 (3.4-5.1) mmol/L Chloride 103 (98-107) mmol/L Carbon Dioxide 17 L (22-32) mmol/L BUN 10 (7-17) mg/dL Creatinine 0.59 (0.52-1.04) mg/dL Estimated GFR > 60.0 (>60) mL/min BUN/Creatinine Ratio 16.9 (6-22) Glucose 129 H (70-100) mg/dL Lactate (0.7-2.1) mmol/L Calcium 9.9 (8.4-10.2) mg/dL Magnesium 1.7 (1.6-2.3) mg/dL Total Bilirubin 0.8 (0.2-1.3) mg/dL AST 33 (14-36) IU/L ALT 31 (<35) IU/L Alkaline Phosphatase 100 (38-126) U/L Total Creatine Kinase 184 H (30-135) U/L CK-MB (CK-2) 0.88 (<2.37) ng/mL CK-MB (CK-2) Rel Index 0.5 L (1.5-5.0) % Troponin I < 0.012 (0.01-0.034) ng/mL Total Protein 8.5 H (6.3-8.2) g/dL Albumin 4.9 (3.5-5.0) g/dL Globulin 3.6 (1.7-4.1) g/dL Albumin/Globulin Ratio 1.4 (1.0-2.8) Amylase 72 (30-110) U/L Lipase 86 D (23-300) U/L 01/09/20 01/09/20 Range/Units 13:56 18:20 WBC (4.5-11.0) X10^3/uL RBC (4.0-5.2) X10^6/uL Hgb (12.0-16.0) g/dL Hct (36-46) % MCV (80-100) fL MCH (26-34) PG MCHC (30-36) % RDW (11.6-14.8) % Plt Count (150-400) X10^3/uL Neut % (Auto) (50-75) % Lymph % (Auto) (25-40) % [place] % (Auto) (3-14) % Eos % (Auto) (2-4) % Baso % (Auto) (0-2) % Neut # (Auto) (7170-0137) /uL Lymph # (Auto) (8749-9688) /uL [place] # (Auto) (0-900) /uL Eos # (Auto) (0-450) /uL Baso # (Auto) (0-100) /uL D-Dimer (<230) ng/mL Sodium (137-145) mmol/L Potassium (3.4-5.1) mmol/L Chloride (98-107) mmol/L Carbon Dioxide (22-32) mmol/L BUN (7-17) mg/dL Creatinine (0.52-1.04) mg/dL Estimated GFR (>60) mL/min BUN/Creatinine Ratio (6-22) Glucose (70-100) mg/dL Lactate 3.8 H 2.1 (0.7-2.1) mmol/L Calcium (8.4-10.2) mg/dL Magnesium (1.6-2.3) mg/dL Total Bilirubin (0.2-1.3) mg/dL AST (14-36) IU/L ALT (<35) IU/L Alkaline Phosphatase (38-126) U/L Total Creatine Kinase (30-135) U/L CK-MB (CK-2) (<2.37) ng/mL CK-MB (CK-2) Rel Index (1.5-5.0) % Troponin I (0.01-0.034) ng/mL Total Protein (6.3-8.2) g/dL Albumin (3.5-5.0) g/dL Globulin (1.7-4.1) g/dL Albumin/Globulin Ratio (1.0-2.8) Amylase (30-110) U/L Lipase (23-300) U/L Point of care testing: Point of Care Testing Test Results Negative Urine Dip Bedside Urine Glucose Negative Bedside Urine Bilirubin - Negative Bedside Urine Ketone +++ 80 Urine Specific [place] 1.015 Bedside Urine Occult Blood - Negative Bedside Urine pH 8.5 Bedside Urine Protein - Negative Bedside Urine Urobilinogen - Negative Bedside Urine Nitrite - Negative Bedside Urine Leukocytes - Negative Esterase Imaging Data CT scan - abdomen/pelvis: Radiologist's Impression: [address] [place] [address] CT Scan Report Signed Patient: Angelica Cannon CMR#: [id number] : 2000Acct:[id number] Age/Sex: te of Service: 01/09/20 Loc: ED Accession Number: [id number] Procedure: CT chest abdomen w con Ordering Provider: Kenya Orellana [facility] PROCEDURE: CT CHEST ABDOMEN W CON INDICATIONS: sob, abd pain, elevated lactate TECHNIQUE: After the administration of intravenous contrast, 5 mm thick sections acquired from the lung apices to the iliac crests. 5 mm coronal and sagittal reformats were performed, with additional 7 mm coronal MIP reformats through the lungs. For radiation dose reduction, the following was used: automated exposure control, adjustment of mA and/or kV according to patient size. COMPARISON: None. FINDINGS: Image quality: Mild image degradation secondary to respiratory motion artifact. CHEST: Lungs and pleura: No acute airspace opacities. Minimal bibasilar atelectasis and linear subsegmental atelectasis of the medial right middle lobe. No pleural effusions or pneumothorax. Central and peripheral airways appear patent and normal in caliber. Mediastinum: Heart size is normal. No pericardial effusion. No mediastinal or hilar adenopathy by size criteria. Thoracic aorta and central pulmonary arteries are normal in size. Esophagus is normal in caliber. No hiatal hernia. Chest wall: No axillary or supraclavicular adenopathy by size criteria. Thyroid gland is unremarkable. ABDOMEN: Solid organs: Liver is mildly prominent in size and demonstrates homogeneous enhancement. Gallbladder is unremarkable. Biliary system is non dilated. Pancreas enhances normally. Spleen is normal in size and enhancement. No adrenal nodules. Kidneys demonstrate normal size and enhancement, without hydronephrosis. A few left renal hypodensities which are too small to accurately characterize but statistically represent simple renal cysts. Peritoneum and bowel: Visualized bowel loops demonstrate normal wall thickness and caliber. No free fluid or air. Nodes and vessels: No retroperitoneal or mesenteric adenopathy by size criteria. Aorta and inferior vena cava are normal in size. Bones: No suspicious bony lesions. No vertebral body compression fractures. Miscellaneous: No ventral hernias. IMPRESSION: CT chest and abdomen without acute abnormalities. Borderline hepatomegaly. Dictated by: Preston Powell M.D. on 01/09/2020 at 15:50 Approved by: Preston Powell M.D. on 01/09/2020 at 15:57 ECG Data Attestation: I personally reviewed and interpreted this ECG as follows: Interpretation: Sinus rhythm. Ventricular rate 80. P.r. interval 140. QRS 80. Viewed by Dr Crystal QUIROGA Narrative Medical decision making narrative: The patient is a 19-year-old female who presents for the 2nd time in 3 days for a chief complaint of abdominal pain, nausea vomiting, chest pain or shortness of breath. She felt much better after the above-stated therapies. Her initial lactate was 3.8, but decreased to 2.1. Her abdomen chest CT came back with no acute findings, she is afebrile, and after the above-stated therapies is able to tolerate p.o. food and fluids. She requested to leave multiple times. I discussed at length the importance of follow-up with primary care provider, as well as stopping smoking marijuana. She admits today having at least 4 times a day, stated she felt better after previous emergency department visit until she started smoking again. I discussed at length that this needs to stop. Given her chest pain or shortness of breath, coronavirus testing was done. I discussed at length self quarantine, washing hands, covering cough until results come in. also reassuring that the patient's troponin iNegative, D-dimer is negative an EKG has no acute changes. I discussed at length follow up with primary care provider, coming back to the emergency department for any acute concerns. Patient has no questions or concerns upon discharge and states understanding of return precautions as well as follow-up care. <Lex Rojas MD - Last Filed: 01/10/20 08:43> Lab Data Labs: Lab Results 01/09/20 01/09/20 01/09/20 Range/Units 13:56 13:56 13:56 WBC 12.9 H (4.5-11.0) X10^3/uL RBC 4.72 (4.0-5.2) X10^6/uL Hgb 14.3 (12.0-16.0) g/dL Hct 42.1 (36-46) % MCV 89.1 (80-100) fL MCH 30.2 (26-34) PG MCHC 33.9 (30-36) % RDW 13.9 (11.6-14.8) % Plt Count 339 (150-400) X10^3/uL Neut % (Auto) 89.7 H (50-75) % Lymph % (Auto) 6.9 L (25-40) % [place] % (Auto) 3.0 (3-14) % Eos % (Auto) 0.1 L (2-4) % Baso % (Auto) 0.3 (0-2) % Neut # (Auto) 54358 H (7037-8622) /uL Lymph # (Auto) 900 L (5913-9511) /uL [place] # (Auto) 400 (0-900) /uL Eos # (Auto) 0 (0-450) /uL Baso # (Auto) 0 (0-100) /uL D-Dimer < 200 (<230) ng/mL Sodium 137 (137-145) mmol/L Potassium 3.6 (3.4-5.1) mmol/L Chloride 103 (98-107) mmol/L Carbon Dioxide 17 L (22-32) mmol/L BUN 10 (7-17) mg/dL Creatinine 0.59 (0.52-1.04) mg/dL Estimated GFR > 60.0 (>60) mL/min BUN/Creatinine Ratio 16.9 (6-22) Glucose 129 H (70-100) mg/dL Lactate (0.7-2.1) mmol/L Calcium 9.9 (8.4-10.2) mg/dL Magnesium 1.7 (1.6-2.3) mg/dL Total Bilirubin 0.8 (0.2-1.3) mg/dL AST 33 (14-36) IU/L ALT 31 (<35) IU/L Alkaline Phosphatase 100 (38-126) U/L Total Creatine Kinase 184 H (30-135) U/L CK-MB (CK-2) 0.88 (<2.37) ng/mL CK-MB (CK-2) Rel Index 0.5 L (1.5-5.0) % Troponin I < 0.012 (0.01-0.034) ng/mL Total Protein 8.5 H (6.3-8.2) g/dL Albumin 4.9 (3.5-5.0) g/dL Globulin 3.6 (1.7-4.1) g/dL Albumin/Globulin Ratio 1.4 (1.0-2.8) Amylase 72 (30-110) U/L Lipase 86 D (23-300) U/L 01/09/20 01/09/20 Range/Units 13:56 18:20 WBC (4.5-11.0) X10^3/uL RBC (4.0-5.2) X10^6/uL Hgb (12.0-16.0) g/dL Hct (36-46) % MCV (80-100) fL MCH (26-34) PG MCHC (30-36) % RDW (11.6-14.8) % Plt Count (150-400) X10^3/uL Neut % (Auto) (50-75) % Lymph % (Auto) (25-40) % [place] % (Auto) (3-14) % Eos % (Auto) (2-4) % Baso % (Auto) (0-2) % Neut # (Auto) (6826-5598) /uL Lymph # (Auto) (8273-2186) /uL [place] # (Auto) (0-900) /uL Eos # (Auto) (0-450) /uL Baso # (Auto) (0-100) /uL D-Dimer (<230) ng/mL Sodium (137-145) mmol/L Potassium (3.4-5.1) mmol/L Chloride (98-107) mmol/L Carbon Dioxide (22-32) mmol/L BUN (7-17) mg/dL Creatinine (0.52-1.04) mg/dL Estimated GFR (>60) mL/min BUN/Creatinine Ratio (6-22) Glucose (70-100) mg/dL Lactate 3.8 H 2.1 (0.7-2.1) mmol/L Calcium (8.4-10.2) mg/dL Magnesium (1.6-2.3) mg/dL Total Bilirubin (0.2-1.3) mg/dL AST (14-36) IU/L ALT (<35) IU/L Alkaline Phosphatase (38-126) U/L Total Creatine Kinase (30-135) U/L CK-MB (CK-2) (<2.37) ng/mL CK-MB (CK-2) Rel Index (1.5-5.0) % Troponin I (0.01-0.034) ng/mL Total Protein (6.3-8.2) g/dL Albumin (3.5-5.0) g/dL Globulin (1.7-4.1) g/dL Albumin/Globulin Ratio (1.0-2.8) Amylase (30-110) U/L Lipase (23-300) U/L Point of care testing: Point of Care Testing Test Results Negative Urine Dip Bedside Urine Glucose Negative Bedside Urine Bilirubin - Negative Bedside Urine Ketone +++ 80 Urine Specific [place] 1.015 Bedside Urine Occult Blood - Negative Bedside Urine pH 8.5 Bedside Urine Protein - Negative Bedside Urine Urobilinogen - Negative Bedside Urine Nitrite - Negative Bedside Urine Leukocytes - Negative Esterase Discharge Plan Departure Patient Disposition: Home Clinical Impression: Nausea & vomiting Qualifiers: Vomiting type: unspecified Vomiting Intractability: non-intractable Qualified Code(s): R11.2 - Nausea with vomiting, unspecified Abdominal pain Qualifiers: Abdominal location: generalized Qualified Code(s): R10.84 - Generalized abdominal pain Discharge Date/Time: 01/09/20 19:27 Instructions: DI for Abdominal Pain-Adult, DI for Nausea -- Adult, DI for Vomiting -- Adult, DI for COVID-19 (Suspected or Confirmed ), Can COVID-19 be prevented? Activity Restrictions/Additional Instructions: Is thank you for trusting us with your care today. I sent a prescription of Reglan for nausea to [facility] in [place]. As I discussed, your CT had no acute findings today As I discussed, please stop smoking weed. Do not dab. Do not vape. Please follow-up with primary care provider. I have given you contact information [facility] human resource adviser. You can contact them to help find a primary care provider in the area. Please start with a light diet as I discussed. Please come back to the emergency department for any acute concerns Prescriptions: New metoclopramide HCl [Reglan] 10 mg tablet 10 mg PO Q6H PRN (Reason: nausea and vomiting) Qty: 14 RF: 0 No Action ondansetron 4 mg tablet,disintegrating 4 mg PO QID PRN (Reason: nausea and vomiting) Qty: 10 RF: 0 promethazine 25 mg suppository 25 mg [place] Q6H PRN (Reason: nausea and vomiting) Qty: 1 RF: 0 Referrals: [facility] [Outside] <Lex Rojas MD - Last Filed: 01/10/20 08:43> [facility] I was immediately available in the department for consultation. This documentation has been reviewed and I agree with assessment and plan. Supervised by Lex Rojas MD
[2020-01-09] MEDS: LORazepam 2 MG/ML INJ 1 MG IV (15:01)
--- NOTE | 2020-01-09 15:12 | DI.CT.S_ITS ---
PROCEDURE: CT CHEST ABDOMEN W CON INDICATIONS: sob, abd pain, elevated lactate TECHNIQUE: After the administration of intravenous contrast, 5 mm thick sections acquired from the lung apices to the iliac crests. 5 mm coronal and sagittal reformats were performed, with additional 7 mm coronal MIP reformats through the lungs. For radiation dose reduction, the following was used: automated exposure control, adjustment of mA and/or kV according to patient size. COMPARISON: None. FINDINGS: Image quality: Mild image degradation secondary to respiratory motion artifact. CHEST: Lungs and pleura: No acute airspace opacities. Minimal bibasilar atelectasis and linear subsegmental atelectasis of the medial right middle lobe. No pleural effusions or pneumothorax. Central and peripheral airways appear patent and normal in caliber. Mediastinum: Heart size is normal. No pericardial effusion. No mediastinal or hilar adenopathy by size criteria. Thoracic aorta and central pulmonary arteries are normal in size. Esophagus is normal in caliber. No hiatal hernia. Chest wall: No axillary or supraclavicular adenopathy by size criteria. Thyroid gland is unremarkable. ABDOMEN: Solid organs: Liver is mildly prominent in size and demonstrates homogeneous enhancement. Gallbladder is unremarkable. Biliary system is non dilated. Pancreas enhances normally. Spleen is normal in size and enhancement. No adrenal nodules. Kidneys demonstrate normal size and enhancement, without hydronephrosis. A few left renal hypodensities which are too small to accurately characterize but statistically represent simple renal cysts. Peritoneum and bowel: Visualized bowel loops demonstrate normal wall thickness and caliber. No free fluid or air. Nodes and vessels: No retroperitoneal or mesenteric adenopathy by size criteria. Aorta and inferior vena cava are normal in size. Bones: No suspicious bony lesions. No vertebral body compression fractures. Miscellaneous: No ventral hernias. IMPRESSION: CT chest and abdomen without acute abnormalities. Borderline hepatomegaly. Dictated by: Preston Powell M.D. on 01/09/2020 at 15:50 Approved by: Preston Powell M.D. on 01/09/2020 at 15:57
[2020-01-09 16:02] LABS: Reflexed Lactate in 2 Hours Y
[2020-01-09] MEDS: HYDROMORPHONE 0.5 MG INJ IV (16:10)
[2020-01-09] MEDS: MAG HYDROX/ALUMINUM/SIMETH SUS 20 ML, LIDOCAINE VISCOUS 2% 15 ML PO (16:11)
--- NOTE | 2020-01-09 18:40 | PC.NURSE ---
pt was in room with boyfriend. She reports that her symptoms are no longer as severe as they were. They stated that after her first L of fluid she felt better.
[2020-01-09 18:43] LABS: Lactate 2HR (Lactic Acid Rflx) 2.1 mmol/L (0.7-2.1)
[2020-01-11 09:03] LABS: COVID19 Sendout Not Detected (Not Detected)
== END 2020-01-09 19:27 | disposition home or self-care (01) ==
PROVIDERS: Emergency Provider Nurse Practitioner Family
DX: R11.2 Nausea with vomiting, unspecified (principal); R10.84 Generalized abdominal pain; R06.02 Shortness of breath; R68.89 Other general symptoms and signs
CPT/HCPCS: 36415; 71260; 74160; 80053; 81003; 81025; 82150; 82550; 82553; 83605; 83690; 83735; 84484; 85025; 85379; 87635; 93005; 93010; 96361; 96374; 96375; 99284; C9113; J1170; J1200; J2060; J2765; Q9967

== ENCOUNTER 2020-01-14 09:10 | Emergency (ER) | payer OTHER, MEDICAID, SELFPAY ==
[2020-01-14 09:31] VITALS: BP 190/80; PULSE 80; RESP 26; TEMP 37.2
[2020-01-14 09:35] VITALS: TEMP 36.6
--- NOTE | 2020-01-14 09:36 | DI.RAD.S_ITS ---
PROCEDURE: XR CHEST 1V INDICATIONS: chest pain TECHNIQUE: One view of the chest was acquired. COMPARISON: [facility], CR, XR CHEST 1V, 01/07/2020, 15:07. FINDINGS: Surgical changes and devices: None. Lungs and pleura: Lungs are clear. No pleural effusions or pneumothorax. Mediastinum: Mediastinal contours appear normal. Heart size is normal. Bones and chest wall: No suspicious bony lesions. Overlying soft tissues appear unremarkable. IMPRESSION: No acute disease. Dictated by: Teo Denny M.D. on 01/14/2020 at 10:13 Approved by: Teo Denny M.D. on 01/14/2020 at 10:15
[2020-01-14 09:53] LABS: Add Manual Diff / Slide Review NO; Basophils Absolute Auto 0 /uL (0-100); Basophils Percent Auto 0.2 % (0-2); Eosinophils Absolute Auto 0 /uL (0-450); Eosinophils Percent Auto 0.3 % (2-4); Hematocrit 43.9 % (36-46); Hemoglobin 14.7 g/dL (12.0-16.0); Lymphocytes Absolute Auto 1200 /uL (1100-4500); Mean Corpuscular HGB Conc 33.5 % (30-36); Mean Corpuscular Hemoglobin 30.1 PG (26-34); Mean Corpuscular Volume 89.7 fL (80-100); Monocytes Absolute Auto 900 /uL (0-900); Neutrophils Absolute Auto 12900 /uL (1500-7000); Neutrophils Percent Auto 85.5 % (50-75); Platelet Count 400 X10^3/uL (150-400); Red Cell Distribution Width 13.5 % (11.6-14.8); White Blood Cell Count 15.1 X10^3/uL (4.5-11.0)
[2020-01-14 10:01] LABS: INR 1.2 (0.9-1.3); Prothrombin Time 14.2 SECONDS (10.1-12.7)
[2020-01-14 10:04] LABS: PTT Partial Thromboplastin Tim 36 SECONDS (26.4-36.2)
[2020-01-14 10:05] LABS: Alanine Aminotransferase 49 IU/L (<35); Albumin 5.2 g/dL (3.5-5.0); Albumin Globulin Ratio 1.4 (1.0-2.8); Alkaline Phosphatase 91 U/L (38-126); Aspartate Aminotransferase 42 IU/L (14-36); BUN Creatinine Ratio 7.1 (6-22); Blood Urea Nitrogen 6 mg/dL (7-17); Carbon Dioxide 26 mmol/L (22-32); Chloride 94 mmol/L (98-107); Creatine Kinase 253 U/L (30-135); Estimated Glomerular Filt Rate > 60.0 mL/min (>60); Globulin 3.6 g/dL (1.7-4.1); Glucose 125 mg/dL (70-100); HEMOLYSIS < 15 (0-50); Lipase 59 U/L (23-300); Magnesium 2.3 mg/dL (1.6-2.3); Potassium 3.7 mmol/L (3.4-5.1); Sodium 136 mmol/L (137-145); Total Protein 8.8 g/dL (6.3-8.2)
[2020-01-14 10:16] LABS: Troponin I < 0.012 ng/mL (0.01-0.034)
[2020-01-14 10:21] LABS: CKMB % Relative Index 0.1 % (1.5-5.0); Creatine Kinase MB < 0.22 ng/mL (<2.37)
[2020-01-14] MEDS: KETOROLAC 60 MG/2 ML VIAL 15 MG IV (10:47)
[2020-01-14] MEDS: diphenhydrAMINE 50 MG/ML VIAL 25 MG IV (10:47)
[2020-01-14] MEDS: HALOPERIDOL 5 MG/ML VIAL 2 MG IV (10:47)
--- NOTE | 2020-01-14 10:57 | PC.NURSE ---
pt c/o intermittent nausea and vomiting since 01/08/20. was feeling better yesterday until about 0330 when pain started again, then nausea and vomiting, and pain into chest. episode similar to all previous episodes. seen multiple times in er for the same.
--- NOTE | 2020-01-14 10:58 | ED_ITS ---
HPI - Chest Pain <Janell Wu PA-C - Last Filed: 01/14/20 20:14> General Chief Complaint: Chest Pain Stated Complaint: SHORTNESS OF BREATH,CHEST PAIN Time Seen by Provider: 01/14/20 09:45 Source: patient Mode of arrival: Ambulatory Limitations: no limitations History of Present Illness HPI narrative: Is a 19-year-old female who presents to the emergency department with chest pain, intermittent shortness of breath, abdominal pain, nausea as and episodes of vomiting this morning. She states she woke up this morning around 2:03 a.m. felt nauseous vomited, she has been having shortness of breath which she believes is associated with anxiety or panic attacks is similar to what she has felt before, she is also having chest pain that she says feels like someone is using her ?heart like a stress ball? of all her complaints she is most bothered by her sensation of chest pain. She says it is somewhat positional but she is unable to describe how, although she seems most comfortable sitting upright. She was recently in the emergency department for similar symptoms, and has had trouble with intractable vomiting due to THC. She reports ?I do not really use Zofran because I don't like the taste of it under my tongue. Related Data Previous Rx's Medication Instructions Recorded ondansetron 4 mg PO QID PRN #10 tab 01/07/20 promethazine 25 mg VT Q6H PRN #1 each 01/07/20 metoclopramide HCl [Reglan] 10 mg PO Q6H PRN #14 tab 01/09/20 Allergies Allergy/AdvReac Type Severity Reaction Status Date / Time No Known Drug Allergies Allergy Verified 01/14/20 09:35 Review of Systems <Janell Wu PA-C - Last Filed: 01/14/20 20:14> Review of Systems Narrative: GENERAL: Denies chills, fatigue, malaise, fever, sweats. HEENT: Denies sinus pain, ear pain, sore throat, difficulty swallowing, dizziness. RESPIRATORY: Positive for intermittent shortness of breath, negative for cough, wheezing, hemoptysis, sputum. CARDIOVASCULAR: Positive for chest pain in center of chest, squeezing, negative for palpitations, orthopnea, edema GASTROINTESTINAL: Positive for nausea, vomiting, upper left abdominal pain, diarrhea (1 episode of loose stool per day for the last week or so), negative for constipation, melena, blood in stool, blood in vomit. : Denies dysuria, frequency, incontinence, hematuria, urinary retention. MUSCULOSKELETAL: denies weakness, joint pain, or bony pain SKIN: Denies rash, skin lesions, or other NEUROLOGIC: Denies weakness, headache, numbness, change in speech, confusion, seizures, incoordination. PSYCHIATRIC: No concerning psychosocial issues, has chronic issues with panic attacks, anxiety. 12 point review of systems is negative except for those stated above Patient History <Janell Wu PA-C - Last Filed: 01/14/20 20:14> Social History Smoking Status: Current every day smoker Smoking Status: Current every day smoker tobacco type: vaping alcohol intake frequency: 0-2 drinks per day Substance Use Type: marijuana Exam <Janell Wu PA-C - Last Filed: 01/14/20 20:14> Narrative Exam Narrative: GENERAL: 19 year old patient appears stated age. Well-nourished, overweight patient, in moderate distress. HEAD: Atraumatic. Normocephalic. EYES: Pupils equal round and reactive. Extraocular motions intact. No scleral icterus. No injection or drainage. ENT: Nose without bleeding, purulent drainage. Throat mildly erythematous at the tonsillar pillar, tonsillar hypertrophy or exudate. Airway patent. NECK: Trachea midline. Non tender CARDIOVASCULAR: Regular rate and rhythm without murmurs, gallops, or rubs. RESPIRATORY: Clear to auscultation. Breath sounds equal bilaterally. No wheezes, rales, or rhonchi. GASTROINTESTINAL: Abdomen soft, mildly tender in the left upper quadrant, otherwise non-tender, nondistended. EXTREMITIES: No edema or joint tenderness. BACK: Nontender without deformity or crepitance. No flank tenderness. NEURO: AOx3. SKIN: No rash or erythema of visible areas Initial Vital Signs Initial Vital Signs: Vital Signs Temperature 99 F 01/14/20 09:31 Pulse Rate 80 01/14/20 09:31 Respiratory Rate 26 H 01/14/20 09:31 Blood Pressure 190/80 H 01/14/20 09:31 <Una Valentine MD - Last Filed: 01/15/20 07:24> Initial Vital Signs Initial Vital Signs: Vital Signs Temperature 99 F 01/14/20 09:31 Pulse Rate 80 01/14/20 09:31 Respiratory Rate 26 H 01/14/20 09:31 Blood Pressure 190/80 H 01/14/20 09:31 Course <Janell Wu PA-C - Last Filed: 01/14/20 20:14> Orders Ordered: Discontinued Medications Diphenhydramine HCl (Benadryl) 25 mg IV NOW ONE Stop: 01/14/20 10:43 Last Admin: 01/14/20 10:47 Dose: 25 mg Documented by: SCANAPO Haloperidol (Haldol) 2 mg IV NOW ONE Stop: 01/14/20 10:43 Last Admin: 01/14/20 10:47 Dose: 2 mg Documented by: SCANAPO Ketorolac Tromethamine (Toradol) 15 mg IV NOW ONE Stop: 01/14/20 10:43 Last Admin: 01/14/20 10:47 Dose: 15 mg Documented by: SCANAPO Vital Signs Vital signs: Vital Signs - 8 hr 01/14/20 09:31 01/14/20 09:35 01/14/20 11:00 Temperature 99 F 97.9 F Pulse Rate 80 88 Respiratory Rate 26 H 17 Blood Pressure 190/80 H Blood Pressure [Left Arm] 135/78 Pulse Oximetry 98 <Una Valentine MD - Last Filed: 01/15/20 07:24> Orders Ordered: Discontinued Medications Diphenhydramine HCl (Benadryl) 25 mg IV NOW ONE Stop: 01/14/20 10:43 Last Admin: 01/14/20 10:47 Dose: 25 mg Documented by: SCANAPO Haloperidol (Haldol) 2 mg IV NOW ONE Stop: 01/14/20 10:43 Last Admin: 01/14/20 10:47 Dose: 2 mg Documented by: SCANAPO Ketorolac Tromethamine (Toradol) 15 mg IV NOW ONE Stop: 01/14/20 10:43 Last Admin: 01/14/20 10:47 Dose: 15 mg Documented by: SCANAPO Vital Signs Vital signs: Vital Signs - 8 hr 01/14/20 09:31 01/14/20 09:35 01/14/20 11:00 Temperature 99 F 97.9 F Pulse Rate 80 88 Respiratory Rate 26 H 17 Blood Pressure 190/80 H Blood Pressure [Left Arm] 135/78 Pulse Oximetry 98 MDM - Chest Pain <Janell Wu PA-C - Last Filed: 01/14/20 20:14> Differential Diagnosis Differential diagnosis: Likely chest pain and other (Nausea and vomiting, anxiety, panic attack) Medical Records Data Attestation: I reviewed the patient's medical records. Lab Data Attestation: I reviewed the patient's lab results. Result diagrams: 01/14/20 09:43 01/14/20 09:43 Labs: Lab Results 01/14/20 01/14/20 01/14/20 Range/Units 09:43 09:43 09:43 WBC 15.1 H (4.5-11.0) X10^3/uL RBC 4.90 (4.0-5.2) X10^6/uL Hgb 14.7 (12.0-16.0) g/dL Hct 43.9 (36-46) % MCV 89.7 (80-100) fL MCH 30.1 (26-34) PG MCHC 33.5 (30-36) % RDW 13.5 (11.6-14.8) % Plt Count 400 (150-400) X10^3/uL Neut % (Auto) 85.5 H (50-75) % Lymph % (Auto) 8.0 L (25-40) % [place] % (Auto) 6.0 (3-14) % Eos % (Auto) 0.3 L (2-4) % Baso % (Auto) 0.2 (0-2) % Neut # (Auto) 87029 H (0288-0190) /uL Lymph # (Auto) 1200 (9256-4229) /uL [place] # (Auto) 900 (0-900) /uL Eos # (Auto) 0 (0-450) /uL Baso # (Auto) 0 (0-100) /uL PT 14.2 H (10.1-12.7) SECONDS INR 1.2 (0.9-1.3) APTT 36 D (26.4-36.2) SECONDS Sodium 136 L (137-145) mmol/L Potassium 3.7 (3.4-5.1) mmol/L Chloride 94 L (98-107) mmol/L Carbon Dioxide 26 (22-32) mmol/L BUN 6 L (7-17) mg/dL Creatinine 0.84 (0.52-1.04) mg/dL Estimated GFR > 60.0 (>60) mL/min BUN/Creatinine Ratio 7.1 (6-22) Glucose 125 H (70-100) mg/dL Calcium 10.0 (8.4-10.2) mg/dL Magnesium 2.3 (1.6-2.3) mg/dL Total Bilirubin 1.0 (0.2-1.3) mg/dL AST 42 H (14-36) IU/L ALT 49 H (<35) IU/L Alkaline Phosphatase 91 (38-126) U/L Total Creatine Kinase 253 H (30-135) U/L CK-MB (CK-2) < 0.22 (<2.37) ng/mL CK-MB (CK-2) Rel Index 0.1 L (1.5-5.0) % Troponin I < 0.012 (0.01-0.034) ng/mL Total Protein 8.8 H (6.3-8.2) g/dL Albumin 5.2 H (3.5-5.0) g/dL Globulin 3.6 (1.7-4.1) g/dL Albumin/Globulin Ratio 1.4 (1.0-2.8) Lipase 59 (23-300) U/L Imaging Data Chest x-ray: Attestation: I personally reviewed and interpreted this imaging study as follows: Radiologist's Impression: [address] [address] XRay Report Signed Patient: Angelica Cannon CMR#: [id number] : 2000Acct:[id number] Age/Sex: FDate of Service: 01/14/20 Loc: ED Accession Number: [id number] Procedure: XR chest 1V Ordering Provider: Una Valentine MD PROCEDURE: XR CHEST 1V INDICATIONS: chest pain TECHNIQUE: One view of the chest was acquired. COMPARISON: [facility], CR, XR CHEST 1V, 01/07/2020, 15:07. FINDINGS: Surgical changes and devices: None. Lungs and pleura: Lungs are clear. No pleural effusions or pneumothorax. Mediastinum: Mediastinal contours appear normal. Heart size is normal. Bones and chest wall: No suspicious bony lesions. Overlying soft tissues appear unremarkable. IMPRESSION: No acute disease. Dictated by: Teo Denny M.D. on 01/14/2020 at 10:13 Approved by: Teo Denny M.D. on 01/14/2020 at 10:15 ECG Data Attestation: I personally reviewed and interpreted this ECG as follows: Prior ECG tracings: not available for review Interpretation: Sinus bradycardia with a rate of 59, VT interval is 130 QRS is 79 QT is 430, nonspecific T-wave abnormality EKG was reviewed by Dr. Valentine attending physician MDM Narrative Medical decision making narrative: This is a 19-year-old female who presents to the emergency department complaining of shortness of breath, chest pain and nausea and vomiting, with multiple recent ED visits for similar. Low suspicion for pericarditis given the nature of her pain, normal exam, heart tones and lack of associated symptoms. Troponin and CK-MB are in the normal range, CK is elevated. Low suspicion for ME /cardiac specific etiology. The patient has a slightly elevated white count, I suspect this is due to her chronic nausea and vomiting, her abdominal exam was nonspecific I do not believe she warrants CT scan today. Shortness of breath was not evident on exam, or SpO2. Suspect as patient describes this is likely due to her anxiety, and panic attacks. Patient was reportedly histrionic on arrival, and was medicated with Haldol and Benadryl, prior to my assuming care. On my exam she was interacting appropriately, however sleepy 2nd to medications. Blood pressure was elevated on arrival but improved during her stay. I do not believe that her chest pain or shortness of breath or cardiac in or igin, more likely due to a panic attack, and anxiety, patient requested to leave, was discharged, with advice to follow-up with her PCP, take Zofran as needed for nausea and vomiting, and to not use any THC products. <Una Valentine MD - Last Filed: 01/15/20 07:24> Lab Data Labs: Lab Results 01/14/20 01/14/20 01/14/20 Range/Units 09:43 09:43 09:43 WBC 15.1 H (4.5-11.0) X10^3/uL RBC 4.90 (4.0-5.2) X10^6/uL Hgb 14.7 (12.0-16.0) g/dL Hct 43.9 (36-46) % MCV 89.7 (80-100) fL MCH 30.1 (26-34) PG MCHC 33.5 (30-36) % RDW 13.5 (11.6-14.8) % Plt Count 400 (150-400) X10^3/uL Neut % (Auto) 85.5 H (50-75) % Lymph % (Auto) 8.0 L (25-40) % [place] % (Auto) 6.0 (3-14) % Eos % (Auto) 0.3 L (2-4) % Baso % (Auto) 0.2 (0-2) % Neut # (Auto) 09520 H (1186-3895) /uL Lymph # (Auto) 1200 (7844-0553) /uL [place] # (Auto) 900 (0-900) /uL Eos # (Auto) 0 (0-450) /uL Baso # (Auto) 0 (0-100) /uL PT 14.2 H (10.1-12.7) SECONDS INR 1.2 (0.9-1.3) APTT 36 D (26.4-36.2) SECONDS Sodium 136 L (137-145) mmol/L Potassium 3.7 (3.4-5.1) mmol/L Chloride 94 L (98-107) mmol/L Carbon Dioxide 26 (22-32) mmol/L BUN 6 L (7-17) mg/dL Creatinine 0.84 (0.52-1.04) mg/dL Estimated GFR > 60.0 (>60) mL/min BUN/Creatinine Ratio 7.1 (6-22) Glucose 125 H (70-100) mg/dL Calcium 10.0 (8.4-10.2) mg/dL Magnesium 2.3 (1.6-2.3) mg/dL Total Bilirubin 1.0 (0.2-1.3) mg/dL AST 42 H (14-36) IU/L ALT 49 H (<35) IU/L Alkaline Phosphatase 91 (38-126) U/L Total Creatine Kinase 253 H (30-135) U/L CK-MB (CK-2) < 0.22 (<2.37) ng/mL CK-MB (CK-2) Rel Index 0.1 L (1.5-5.0) % Troponin I < 0.012 (0.01-0.034) ng/mL Total Protein 8.8 H (6.3-8.2) g/dL Albumin 5.2 H (3.5-5.0) g/dL Globulin 3.6 (1.7-4.1) g/dL Albumin/Globulin Ratio 1.4 (1.0-2.8) Lipase 59 (23-300) U/L Discharge Plan Departure Patient Disposition: Home Clinical Impression: Nausea & vomiting Qualifiers: Vomiting type: unspecified Vomiting Intractability: non-intractable Qualified Code(s): R11.2 - Nausea with vomiting, unspecified Chest pain Qualifiers: Chest pain type: other chest pain Qualified Code(s): R07.89 - Other chest pain Discharge Date/Time: 01/14/20 12:44 Instructions: DI for Atypical Chest Pain, DI for Vomiting -- Adult, Nausea and Vomiting-Adult Activity Restrictions/Additional Instructions: There is no evidence of an emergent or life threatening illness at this time, but follow up with your doctor in 1-2 days is recommended nonetheless to continue to rule out serious underlying causes of your symptoms. Based on chest x-ray, EKG, and labs, you do not appear to be having an acute cardiac event at this time, your chest pain and intermittent shortness of breath could be due to anxiety, I recommend he discuss this with your PCP, and continue to use the breathing techniques that have worked for a previously. Please call the office for an appointment. Please return to the Emergency Department for any worsening or persistent symptoms. Please take medications as directed. I recommend that you rest, drink fluids as tolerated, eat small meals, and take Zofran as previously prescribed as needed for nausea and vomiting. It is also very important that you do not who use any products with THC, this may contribute to your symptoms. If you do not have a PCP, I have put in a reference for [facility] resources that can help you get set up with one. Prescriptions: No Action ondansetron 4 mg tablet,disintegrating 4 mg PO QID PRN (Reason: nausea and vomiting) Qty: 10 RF: 0 promethazine 25 mg suppository 25 mg VT Q6H PRN (Reason: nausea and vomiting) Qty: 1 RF: 0 metoclopramide HCl [Reglan] 10 mg tablet 10 mg PO Q6H PRN (Reason: nausea and vomiting) Qty: 14 RF: 0 Referrals: [facility] [Outside] Stand Alone Forms: Work Release Note <Una Valentine MD - Last Filed: 01/15/20 07:24> Cosign ED Attending Cosignature Attestation: [facility] this patient's visit. I agree with documentation as above. Una Valentine MD
[2020-01-14 11:00] VITALS: BP 135/78; PULSE 88; RESP 17; O2SAT 98
== END 2020-01-14 12:44 | disposition home or self-care (01) ==
PROVIDERS: Emergency Medicine; Emergency Provider Student in an Organized Health Care Education/Training Program
DX: R11.2 Nausea with vomiting, unspecified (principal); R07.89 Other chest pain; R10.9 Unspecified abdominal pain; R06.02 Shortness of breath
CPT/HCPCS: 36415; 71045; 80053; 82550; 82553; 83690; 83735; 84484; 85025; 85610; 85730; 93005; 96374; 96375; 99284; J1200; J1630; J1885

== ENCOUNTER 2020-04-24 11:35 | Emergency (ER) | payer OTHER, MEDICAID, SELFPAY ==
[2020-04-24 11:50] VITALS: BP 136/101; PULSE 82; RESP 20; TEMP 36.5; O2SAT 98; BMI 35.5
--- NOTE | 2020-04-24 11:54 | ED_ITS ---
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 She was seen in December for a similar issue. Patient states she discontinued smoking marijuana, however, she was feeling better so she decided to smoke more marijuana. She started smoking approximately 3-4 days ago. Patient states she has epigastric pain and has been vomiting intermittently throughout the day today. She states she is unable to keep any sips of liquid down. She denies any fevers, diarrhea, shortness of breath, dizziness, syncope, blood in her vomit, changes stool, or any other concerns. Related Data Previous Rx's Medication Instructions Recorded ondansetron 4 mg PO QID PRN #10 tab 01/07/[address] Q6H PRN #1 each 01/07/20 metoclopramide HCl [Reglan] 10 mg PO Q6H PRN #14 tab 01/09/20 metoclopramide HCl [Reglan] 10 mg PO Q6H PRN #10 tab 04/24/20 ondansetron 4 mg PO Q6H PRN #10 tab 04/24/20 Allergies Allergy/AdvReac Type Severity Reaction Status Date / Time No Known Drug Allergies Allergy Verified 01/14/20 09:35 Review of Systems <NANCY Matthews - Last Filed: 04/24/20 18:25> Review of Systems Narrative: REVIEW OF SYSTEMS: GENERAL: Denies fever. HENT: No head trauma, sore throat, or dysphagia. EYES: No vision changes. CARDIOVASCULAR: No palpitations, or orthopnea. RESPIRATORY: No shortness of breath or cough. GASTROINTESTINAL: Complains of abdominal pain and vomiting, see HPI GENITOURINARY: No flank pain. MUSCULOSKELETAL: No pain, weakness, or trauma. INTEGUMENTARY: No rash, lesions, or pruritus. NEURO: No numbness, tingling. PSYCH: No behavior or mood changes. Patient History <NANCY Matthews - Last Filed: 04/24/20 18:25> Medical History Pneumonia (Acute) Social History Smoking Status: Current every day smoker Smoking Status: Current every day smoker tobacco type: vaping alcohol intake frequency: 0-2 drinks per day Substance Use Type: marijuana Exam <NANCY Matthews - Last Filed: 04/24/20 18:25> Initial Vital Signs Initial Vital Signs: Vital Signs Temperature 97.7 F 04/24/20 11:50 Pulse Rate 82 04/24/20 11:50 Respiratory Rate 20 04/24/20 11:50 Blood Pressure 136/101 H 04/24/20 11:50 Pulse Oximetry 98 04/24/20 11:50 PHYSICAL EXAMINATION: GENERAL: Well groomed, alert, and cooperative. Answers questions promptly and appropriately. Vital signs noted. HENT: Normocephalic, atraumatic. Hearing intact. Oral mucosa is pink and moist. EYES: Conjunctiva pink, sclera white, no periorbital swelling. CARDIOVASCULAR: S1 and S2 sounds normal. Regular rate and rhythm, no murmurs, clicks, or bruits. No pedal edema. RESPIRATORY: Normal respiratory rate, trachea midline, airway patent. No stridor, nasal flaring or accessory muscle use. Lungs are clear in all mann without wheeze, rhonchi, or crackles. GASTROINTESTINAL: Bowel sounds normoactive. Abdomen is soft, epigastric tenderness with palpation. No organomegaly, no palpable masses. GENITALURINARY: No flank tenderness. MUSCULOSKELETAL: Normal gait and coordination. Equal tone and mass bilaterally. EXTREMITIES: CMS intact, no pedal edema. SKIN: Warm, dry, soft, appropriate color for ethnicity. No lesions, rashes, or wounds to visualized areas. NEURO: Alert and Oriented X 3. Good coordination. No ataxia, or sensory deficits, or cognitive issues. PSYCH: Appropriate affect and mood. <Mray Sue DO - Last Filed: 04/25/20 07:21> Initial Vital Signs Initial Vital Signs: Vital Signs Temperature 97.7 F 04/24/20 11:50 Pulse Rate 82 04/24/20 11:50 Respiratory Rate 20 04/24/20 11:50 Blood Pressure 136/101 H 08/06/20 11:50 Pulse Oximetry 98 04/24/20 11:50 Course <Vanessa Aldridge SENIOR INTERNAL AUDITOR - Last Filed: 04/24/20 18:25> Course Course Narrative: Initially, patient was feeling better after administration of a Zofran and Ativan. She was able to keep down a few sips of water. A GI cocktail was ordered and she began vomiting after sipping it. Patient was then given Haldol. She was able to sip water after Haldol without any difficulty. Upon discharge, and noticed heart rate had increased from 60bpm for 120bpm+, patient stated that she was anxious and frustrated and she wanted to go home. She signed out VDC despite recommendation of additional fluid and heart rate monitoring per RN. Orders Ordered: Discontinued Medications Al Hydrox/Mg Hydrox/Simethicone 20 ml/ Lidocaine HCl 15 ml 0 ml PO NOW ONE Stop: 04/24/20 13:25 Last Admin: 04/24/20 13:48 Dose: 35 ml Documented by: EVONNE Haloperidol (Haldol) 5 mg IM NOW ONE Stop: 04/24/20 14:16 Last Admin: 04/24/20 14:22 Dose: 5 mg Documented by: EVONNE Sodium Chloride (Normal Saline 0.9%) 1,000 mls @ 1,000 mls/hr IV BOLUS ONE Stop: 04/24/20 12:50 Last Infusion: 04/24/20 14:30 Dose: 1,000 mls/hr Documented by: Admin: 04/24/20 12:02 Dose: 1,000 mls/hr Documented by: ALBERTOTEM Lorazepam (Ativan) 0.5 mg IV NOW ONE Stop: 04/24/20 11:56 Last Admin: 04/24/20 12:02 Dose: 0.5 mg Documented by: KBROTEM Lorazepam (Ativan) 0.5 mg IV NOW ONE Stop: 04/24/20 13:54 Last Admin: 04/24/20 14:18 Dose: Not Given Documented by: EVONNE Ondansetron HCl (Zofran) 4 mg IV NOW ONE Stop: 04/24/20 11:52 Last Admin: 04/24/20 12:02 Dose: 4 mg Documented by: AYAZ Pantoprazole Sodium (Protonix) 40 mg IV NOW ONE Stop: 04/24/20 11:52 Last Admin: 04/24/20 12:02 Dose: 40 mg Documented by: AYAZ Consultations Consultation #1: Patient staffed with Dr. Sue. Vital Signs Vital signs: Vital Signs - 8 hr 04/24/20 11:50 04/24/20 13:22 04/24/20 15:22 Temperature 97.7 F Pulse Rate 82 68 128 H Respiratory Rate 20 18 22 Blood Pressure 136/101 H 141/78 H 123/68 Pulse Oximetry 98 98 99 <Mary Sue, DO - Last Filed: 04/25/20 07:21> Orders Ordered: Discontinued Medications Al Hydrox/Mg Hydrox/Simethicone 20 ml/ Lidocaine HCl 15 ml 0 ml PO NOW ONE Stop: 04/24/20 13:25 Last Admin: 04/24/20 13:48 Dose: 35 ml Documented by: EVONNE Haloperidol (Haldol) 5 mg IM NOW ONE Stop: 04/24/20 14:16 Last Admin: 04/24/20 14:22 Dose: 5 mg Documented by: EVONNE Sodium Chloride (Normal Saline 0.9%) 1,000 mls @ 1,000 mls/hr IV BOLUS ONE Stop: 04/24/20 12:50 Last Infusion: 04/24/20 14:30 Dose: 1,000 mls/hr Documented by: Admin: 04/24/20 12:02 Dose: 1,000 mls/hr Documented by: AYAZ Lorazepam (Ativan) 0.5 mg IV NOW ONE Stop: 04/24/20 11:56 Last Admin: 04/24/20 12:02 Dose: 0.5 mg Documented by: AYAZ Lorazepam (Ativan) 0.5 mg IV NOW ONE Stop: 04/24/20 13:54 Last Admin: 04/24/20 14:18 Dose: Not Given Documented by: EVONNE Ondansetron HCl (Zofran) 4 mg IV NOW ONE Stop: 04/24/20 11:52 Last Admin: 04/24/20 12:02 Dose: 4 mg Documented by: AYAZ Pantoprazole Sodium (Protonix) 40 mg IV NOW ONE Stop: 04/24/20 11:52 Last Admin: 04/24/20 12:02 Dose: 40 mg Documented by: AYAZ Vital Signs Vital signs: Vital Signs - 8 hr 04/24/20 11:50 08/06/20 13:22 04/24/20 15:22 Temperature 97.7 F Pulse Rate 82 68 128 H Respiratory Rate 20 18 22 Blood Pressure 136/101 H 141/78 H 123/68 Pulse Oximetry 98 98 99 MDM - Abdominal Pain <NANCY Matthews - Last Filed: 04/24/20 18:25> Medical Records Attestation: I reviewed the patient's medical records. Lab Data Attestation: I reviewed the patient's lab results. Result diagrams: 04/24/20 12:45 04/24/20 12:52 Labs: Lab Results 04/24/20 04/24/20 04/24/20 Range/Units 12:45 12:52 13:10 WBC 17.3 H (4.5-11.0) X10^3/uL RBC 5.05 (4.0-5.2) X10^6/uL Hgb 14.7 (12.0-16.0) g/dL Hct 44.7 (36-46) % MCV 88.4 (80-100) fL MCH 29.1 (26-34) PG MCHC 32.9 (30-36) % RDW 13.7 (11.6-14.8) % Plt Count 404 H (150-400) X10^3/uL Neut % (Auto) 87.6 H (50-75) % Lymph % (Auto) 7.2 L (25-40) % [place] % (Auto) 4.8 (3-14) % Eos % (Auto) 0.1 L (2-4) % Baso % (Auto) 0.3 (0-2) % Neut # (Auto) 55306 H (3947-4013) /uL Lymph # (Auto) 1300 (5353-5836) /uL [place] # (Auto) 800 (0-900) /uL Eos # (Auto) 0 (0-450) /uL Baso # (Auto) 0 (0-100) /uL Sodium 137 (137-145) mmol/L Potassium 3.9 (3.4-5.1) mmol/L Chloride 102 (98-107) mmol/L Carbon Dioxide 20 L (22-32) mmol/L BUN 13 (7-17) mg/dL Creatinine 0.68 (0.52-1.04) mg/dL Estimated GFR > 60.0 (>60) mL/min BUN/Creatinine Ratio 19.1 (6-22) Glucose 143 H (70-100) mg/dL Calcium 10.1 (8.4-10.2) mg/dL Total Bilirubin 1.3 (0.2-1.3) mg/dL AST 33 (14-36) IU/L ALT 34 (<35) IU/L Alkaline Phosphatase 94 (38-126) U/L Total Protein 8.3 H (6.3-8.2) g/dL Albumin 4.6 (3.5-5.0) g/dL Globulin 3.7 (1.7-4.1) g/dL Albumin/Globulin Ratio 1.2 (1.0-2.8) Urine Color Dark yellow Urine Appearance Clear Urine pH 6.5 (4.5-8.0) Ur Specific [place] 1.020 (1.000-1.035) Urine Protein Trace H (Negative) Urine Glucose (UA) Negative (Negative) g/dL Urine Ketones 3+ H (NEGATIVE) Urine Occult Blood Trace-lysed (Negative) Urine Nitrate Negative (Negative) Urine Bilirubin 1+ H (NEGATIVE) Ur Bilirubin Confirm Negative (Negative) Urine Urobilinogen 2.0 H (0.2) E.U./dL Ur Leukocyte Esterase Negative (NEGATIVE) Urine RBC 0-1/hpf (0-5/HPF) Urine WBC 5-10/hpf H (0-5/HPF) Ur Squamous Epith Cells 1-5 /hpf (0-5/HPF) Urine Bacteria Moderate (10-30) H (None) Ur Culture Indicated? Specimen cultured Point of care testing: Urine Dip Bedside Urine Glucose Negative Bedside Urine Bilirubin + 1 Bedside Urine Ketone +++ 80 Urine Specific [place] 1.025 Bedside Urine Occult Blood +/- Bedside Urine pH 6.0 Bedside Urine Protein + 30 Bedside Urine Urobilinogen 1+ 2mg Bedside Urine Nitrite - Negative Bedside Urine Leukocytes +/- 15 Esterase Imaging Data Chest x-ray: Radiologist's Impression: [address] [address] XRay Report Signed Patient: Angelica Cannon CMR#: [id number] : 2000Acct:[id number] Age/Sex: 19 / FDate of Service: 01/14/20 Loc: ED Accession Number: [id number] Procedure: XR chest 1V Ordering Provider: Una Valentine MD PROCEDURE: XR CHEST 1V INDICATIONS: chest pain TECHNIQUE: One view of the chest was acquired. COMPARISON: [facility], CR, XR CHEST 1V, 01/07/2020, 15:07. FINDINGS: Surgical changes and devices: None. Lungs and pleura: Lungs are clear. No pleural effusions or pneumothorax. Mediastinum: Mediastinal contours appear normal. Heart size is normal. Bones and chest wall: No suspicious bony lesions. Overlying soft tissues appear unremarkable. IMPRESSION: No acute disease. Dictated by: Teo Denny M.D. on 01/14/2020 at 10:13 Approved by: Teo Denny M.D. on 01/14/2020 at 10:15 ECG Data Interpretation: 1234: Sinus rhythm, rate 52, CT interval 128, QTC 421. No ST elevation or ST depression. T-wave inversion noted in the T when be 3 which is consistent with prior EKG from 01/09/20. EKG also viewed by Dr. Sue per protocol. [facility] Narrative Medical decision making narrative: 19-year-old female with a history of cyclic vomiting, presents emergency department for vomiting after using marijuana. I suspect patient's pain is most likely caused by cyclic vomiting given the nature of the vomiting, excessive dry heaving, and resolution of symptoms after medication administration. Patient was given fluids, electrolytes were within normal limits, patient reported decreased abdominal pain after administration of medications. Upon discharge, RN noted that heart rate was elevated. Patient was advised to stay for further heart rate monitoring and fluids, patient refused and stated that she wanted go home. He signed out the VDC. Upon initial exam, patient reported epigastric pain, less likely cardiac in nature due to resolution of pain after administration of medications. EKG within normal limits without acute changes. The concerning symptoms such as associated dizziness, diaphoresis, shortness of breath. I suspect patient's elevated white blood cell count is most likely due to vomi ting. However, there was a small amount of white blood cells and bacteria noted in urine. Patient continued to deny any dysuria. However, urine was sent to culture to rule out further infection. Patient was given prescriptions for vomiting. She is encouraged to discontinue use of cannabis. Return precautions given for new or worsening symptoms. <Mary Judgenick, DO - Last Filed: 04/25/20 07:21> Lab Data Labs: Lab Results 04/24/20 04/24/20 04/24/20 Range/Units 12:45 12:52 13:10 WBC 17.3 H (4.5-11.0) X10^3/uL RBC 5.05 (4.0-5.2) X10^6/uL Hgb 14.7 (12.0-16.0) g/dL Hct 44.7 (36-46) % MCV 88.4 (80-100) fL MCH 29.1 (26-34) PG MCHC 32.9 (30-36) % RDW 13.7 (11.6-14.8) % Plt Count 404 H (150-400) X10^3/uL Neut % (Auto) 87.6 H (50-75) % Lymph % (Auto) 7.2 L (25-40) % [place] % (Auto) 4.8 (3-14) % Eos % (Auto) 0.1 L (2-4) % Baso % (Auto) 0.3 (0-2) % Neut # (Auto) 80903 H (2306-8073) /uL Lymph # (Auto) 1300 (7309-9425) /uL [place] # (Auto) 800 (0-900) /uL Eos # (Auto) 0 (0-450) /uL Baso # (Auto) 0 (0-100) /uL Sodium 137 (137-145) mmol/L Potassium 3.9 (3.4-5.1) mmol/L Chloride 102 (98-107) mmol/L Carbon Dioxide 20 L (22-32) mmol/L BUN 13 (7-17) mg/dL Creatinine 0.68 (0.52-1.04) mg/dL Estimated GFR > 60.0 (>60) mL/min BUN/Creatinine Ratio 19.1 (6-22) Glucose 143 H (70-100) mg/dL Calcium 10.1 (8.4-10.2) mg/dL Total Bilirubin 1.3 (0.2-1.3) mg/dL AST 33 (14-36) IU/L ALT 34 (<35) IU/L Alkaline Phosphatase 94 (38-126) U/L Total Protein 8.3 H (6.3-8.2) g/dL Albumin 4.6 (3.5-5.0) g/dL Globulin 3.7 (1.7-4.1) g/dL Albumin/Globulin Ratio 1.2 (1.0-2.8) Urine Color Dark yellow Urine Appearance Clear Urine pH 6.5 (4.5-8.0) Ur Specific [place] 1.020 (1.000-1.035) Urine Protein Trace H (Negative) Urine Glucose (UA) Negative (Negative) g/dL Urine Ketones 3+ H (NEGATIVE) Urine Occult Blood Trace-lysed (Negative) Urine Nitrate Negative (Negative) Urine Bilirubin 1+ H (NEGATIVE) Ur Bilirubin Confirm Negative (Negative) Urine Urobilinogen 2.0 H (0.2) E.U./dL Ur Leukocyte Esterase Negative (NEGATIVE) Urine RBC 0-1/hpf (0-5/HPF) Urine WBC 5-10/hpf H (0-5/HPF) Ur Squamous Epith Cells 1-5 /hpf (0-5/HPF) Urine Bacteria Moderate (10-30) H (None) Ur Culture Indicated? Specimen cultured Point of care testing: Urine Dip Bedside Urine Glucose Negative Bedside Urine Bilirubin + 1 Bedside Urine Ketone +++ 80 Urine Specific [place] 1.025 Bedside Urine Occult Blood +/- Bedside Urine pH 6.0 Bedside Urine Protein + 30 Bedside Urine Urobilinogen 1+ 2mg Bedside Urine Nitrite - Negative Bedside Urine Leukocytes +/- 15 Esterase Discharge Plan Departure Patient Disposition: Home Clinical Impression: Cyclical vomiting Discharge Date/Time: 04/24/20 15:26 Instructions: DI for Cyclic Vomiting Syndrome-Child Activity Restrictions/Additional Instructions: Thank you for entrusting me with your care today. As discussed, your laboratory work is non-remarkable. Your vomiting is most likely caused by marijuana use. I have given you medications for nausea and vomiting, these medications were sent to [facility] in [place]. This nausea medication can make you drowsy, do not drive while taking this medicine. Your urine showed some bacteria, and was sent for culture. If bacteria is present in the culture, we will give you a call in 1-2 days and discuss antibiotics. Prescriptions: New ondansetron 4 mg tablet,disintegrating 4 mg PO Q6H PRN (Reason: nausea and vomiting) Qty: 10 RF: 0 metoclopramide HCl [Reglan] 10 mg tablet 10 mg PO Q6H PRN (Reason: nausea and vomiting) Qty: 10 RF: 0 No Action ondansetron 4 mg tablet,disintegrating 4 mg PO QID PRN (Reason: nausea and vomiting) Qty: 10 RF: 0 promethazine 25 mg suppository [address] Q6H PRN (Reason: nausea and vomiting) Qty: 1 RF: 0 metoclopramide HCl [Reglan] 10 mg tablet 10 mg PO Q6H PRN (Reason: nausea and vomiting) Qty: 14 RF: 0 <Mary Sue DO - Last Filed: 04/25/20 07:21> Cosign ED Attending Pallavi Attestation: I was immediately available in the department for consultation. Documentation has been reviewed. I agree with assessment and plan.
[2020-04-24] MEDS: ONDANSETRON 4 MG/2 ML INJ IV (12:02)
[2020-04-24] MEDS: PANTOPRAZOLE 40 MG VIAL IV (12:02)
[2020-04-24] MEDS: SODIUM CHLORIDE 0.9% 1,000 ML 1000 ML IV (12:02)
[2020-04-24] MEDS: LORazepam 2 MG/ML INJ 0.5 MG IV (12:02)
[2020-04-24 12:56] LABS: Add Manual Diff / Slide Review NO; Basophils Absolute Auto 0 /uL (0-100); Basophils Percent Auto 0.3 % (0-2); Eosinophils Absolute Auto 0 /uL (0-450); Eosinophils Percent Auto 0.1 % (2-4); Hematocrit 44.7 % (36-46); Hemoglobin 14.7 g/dL (12.0-16.0); Lymphocytes Absolute Auto 1300 /uL (1100-4500); Lymphocytes Percent Auto 7.2 % (25-40); Mean Corpuscular HGB Conc 32.9 % (30-36); Mean Corpuscular Hemoglobin 29.1 PG (26-34); Mean Corpuscular Volume 88.4 fL (80-100); Monocytes Absolute Auto 800 /uL (0-900); Monocytes Percent Auto 4.8 % (3-14); Neutrophils Absolute Auto 15100 /uL (1500-7000); Neutrophils Percent Auto 87.6 % (50-75); Platelet Count 404 X10^3/uL (150-400); Red Blood Cell Count 5.05 X10^6/uL (4.0-5.2); Red Cell Distribution Width 13.7 % (11.6-14.8); White Blood Cell Count 17.3 X10^3/uL (4.5-11.0)
[2020-04-24 13:04] LABS: Alanine Aminotransferase 34 IU/L (<35); Albumin 4.6 g/dL (3.5-5.0); Albumin Globulin Ratio 1.2 (1.0-2.8); Alkaline Phosphatase 94 U/L (38-126); Aspartate Aminotransferase 33 IU/L (14-36); BUN Creatinine Ratio 19.1 (6-22); Bilirubin Total 1.3 mg/dL (0.2-1.3); Blood Urea Nitrogen 13 mg/dL (7-17); Calcium 10.1 mg/dL (8.4-10.2); Carbon Dioxide 20 mmol/L (22-32); Chloride 102 mmol/L (98-107); Estimated Glomerular Filt Rate > 60.0 mL/min (>60); Globulin 3.7 g/dL (1.7-4.1); Glucose 143 mg/dL (70-100); HEMOLYSIS < 15 (0-50); Potassium 3.9 mmol/L (3.4-5.1); Sodium 137 mmol/L (137-145); Total Protein 8.3 g/dL (6.3-8.2)
[2020-04-24 13:22] VITALS: BP 141/78; PULSE 68; RESP 18; O2SAT 98
[2020-04-24 13:22] LABS: Appearance Urine UA CLEAR; Bilirubin Urine UA 1+ (NEGATIVE); Glucose Urine UA NEGATIVE (Negative); Ketones Urine UA 3+ (NEGATIVE); Leukocyte Esterase Urine UA NEGATIVE (NEGATIVE); Nitrite Urine UA NEGATIVE (Negative); Occult Blood Urine UA TRACE-LYSED (Negative); Protein Urine UA TRACE (Negative); pH Urine UA 6.5 (4.5-8.0)
[2020-04-24 13:23] LABS: Color Urine UA Dark Yellow
[2020-04-24 13:31] LABS: Bacteria Urine Moderate (10-30); Ictotest Urine Negative (Negative); RBC Urine 0-1/HPF (0-5/HPF); Squamous Epithelial Cell Urine 1-5 /HPF (0-5/HPF); WBC Urine 5-10/HPF (0-5/HPF)
[2020-04-24 13:32] LABS: Culture Indicated Urine Specimen Cultured
[2020-04-24] MEDS: MAG HYDROX/ALUMINUM/SIMETH SUS 20 ML, LIDOCAINE VISCOUS 2% 15 ML PO (13:48)
--- NOTE | 2020-04-24 14:19 | PC.NURSE ---
Pt c/o left arm hurting and tight above and below IV site,IV fluids stopped. Catia Weiss and Vanessa Aldridge aware
[2020-04-24] MEDS: HALOPERIDOL 5 MG/ML VIAL IM (14:22)
[2020-04-24 15:22] VITALS: BP 123/68; PULSE 128; RESP 22; O2SAT 99
== END 2020-04-24 15:26 | disposition home or self-care (01) ==
PROVIDERS: Emergency Provider Nurse Practitioner
DX: R11.15 Cyclical vomiting syndrome unrelated to migraine (principal); R07.9 Chest pain, unspecified; R10.13 Epigastric pain
CPT/HCPCS: 36415; 80053; 81001; 81003; 85025; 87086; 93005; 96361; 96372; 96374; 96375; 99284; C9113; J1630; J2060; J2405

== ENCOUNTER 2020-08-01 14:45 | Emergency (ER) | payer OTHER, MEDICAID, SELFPAY ==
[2020-08-01 15:00] VITALS: BP 130/93; PULSE 87; RESP 18; TEMP 36.3; O2SAT 98; BMI 35.5
[2020-08-01 17:22] VITALS: BP 113/79; PULSE 79; RESP 16; O2SAT 95
--- NOTE | 2020-08-01 18:11 | DI.RAD.S_ITS ---
PROCEDURE: XR ACUTE ABDOMEN SERIES INDICATIONS: abd pain, inability to keep down fluids TECHNIQUE: One view chest and two views of the abdomen were acquired. COMPARISON: None. FINDINGS: Surgical changes and devices: None. Chest: Lungs are clear. Heart size is normal. No pleural effusions. No pneumoperitoneum. Abdomen: Bowel gas pattern is normal. No suspicious calcifications. Visualized solid organ contours appear normal. Bones: No suspicious bony lesions. Transitional anatomy of the lowest lumbar vertebra with spina bifida occulta present. IMPRESSION: 1. Nonspecific, nonobstructive bowel gas pattern. 2. No acute cardiopulmonary disease. Dictated by: Belen Faulkner M.D. on 08/01/2020 at 19:38 Approved by: Belen Faulkner M.D. on 08/01/2020 at 19:39
[2020-08-01] MEDS: SODIUM CHLORIDE 0.9% 1,000 ML 1000 ML IV (18:28)
[2020-08-01] MEDS: ONDANSETRON 4 MG/2 ML INJ IV (18:28)
[2020-08-01] MEDS: METOCLOPRAMIDE 10 MG/2 ML INJ IV (18:28)
[2020-08-01 18:32] LABS: Add Manual Diff / Slide Review NO; Basophils Absolute Auto 100 /uL (0-100); Basophils Percent Auto 0.4 % (0-2); Eosinophils Absolute Auto 100 /uL (0-450); Eosinophils Percent Auto 0.4 % (2-4); Hematocrit 43.9 % (36-46); Hemoglobin 14.7 g/dL (12.0-16.0); Lymphocytes Absolute Auto 2000 /uL (1100-4500); Lymphocytes Percent Auto 14.2 % (25-40); Mean Corpuscular HGB Conc 33.6 % (30-36); Mean Corpuscular Hemoglobin 29.1 PG (26-34); Mean Corpuscular Volume 86.8 fL (80-100); Monocytes Absolute Auto 1000 /uL (0-900); Monocytes Percent Auto 7.3 % (3-14); Neutrophils Absolute Auto 10800 /uL (1500-7000); Neutrophils Percent Auto 77.7 % (50-75); Platelet Count 424 X10^3/uL (150-400); Red Blood Cell Count 5.06 X10^6/uL (4.0-5.2); Red Cell Distribution Width 14.1 % (11.6-14.8); White Blood Cell Count 13.9 X10^3/uL (4.5-11.0)
[2020-08-01 18:48] LABS: Bacteria Urine Occasional (0-1); Culture Indicated Urine Cult Not Indicated; RBC Urine 0-1/HPF (0-5/HPF); Squamous Epithelial Cell Urine 1-5 /HPF (0-5/HPF); WBC Urine 0-1/HPF (0-5/HPF)
[2020-08-01 18:51] LABS: Alanine Aminotransferase 38 IU/L (<35); Albumin 4.5 g/dL (3.5-5.0); Albumin Globulin Ratio 1.2 (1.0-2.8); Alkaline Phosphatase 86 U/L (38-126); Aspartate Aminotransferase 32 IU/L (14-36); BUN Creatinine Ratio 11.3 (6-22); Bilirubin Total 1.2 mg/dL (0.2-1.3); Blood Urea Nitrogen 7 mg/dL (7-17); Calcium 9.6 mg/dL (8.4-10.2); Carbon Dioxide 27 mmol/L (22-32); Chloride 97 mmol/L (98-107); Estimated Glomerular Filt Rate > 60.0 mL/min (>60); Globulin 3.7 g/dL (1.7-4.1); Glucose 107 mg/dL (70-100); HEMOLYSIS < 15 (0-50); Magnesium 2.3 mg/dL (1.6-2.3); Potassium 3.7 mmol/L (3.4-5.1); Sodium 132 mmol/L (137-145); Total Protein 8.2 g/dL (6.3-8.2)
[2020-08-01 19:47] VITALS: PULSE 95; O2SAT 99
--- NOTE | 2020-08-01 19:49 | ED.ABDPAIN ---
HPI - Abdominal Pain <MARÍA Edmondson-BC - Last Filed: 08/01/20 20:04> General Chief Complaint: Abdominal Pain Stated Complaint: sob hard time keeping things down Time Seen by Provider: 08/01/20 17:42 Source: patient Mode of arrival: Ambulatory Limitations: no limitations History of Present Illness HPI narrative: the patient is a 19-year-old female current everyday smoker with history of cyclic vomiting and marijuana related hyperemesis syndrome who presents with a chief complaint of nausea and vomiting. She states she has been sick from this 3 times and most recently smoked marijuana about 6 days ago. Then she became sick with nausea vomiting and this episode has lasted that long. She was seen at an outside emergency department twice in 1 day 2 days ago. She states that she has not been able to take anything for nausea today. She denies any abdominal pain. She states that this feels similar to her cyclic vomiting episodes prior. Related Data Previous Rx's Medication Instructions Recorded ondansetron 4 mg PO QID PRN #10 tab 01/07/20 promethazine 25 mg [place] Q6H PRN #1 each 01/07/20 metoclopramide HCl [Reglan] 10 mg PO Q6H PRN #14 tab 01/09/20 metoclopramide HCl [Reglan] 10 mg PO Q6H PRN #10 tab 04/24/20 ondansetron 4 mg PO Q6H PRN #10 tab 04/24/20 metoclopramide HCl 10 mg PO Q6H PRN #14 tab 08/01/20 ondansetron 4 mg PO Q6H PRN #14 tab 08/01/20 Allergies Allergy/AdvReac Type Severity Reaction Status Date / Time No Known Drug Allergies Allergy Verified 08/01/20 15:00 Review of Systems <MARY EdmondsonBC - Last Filed: 08/01/20 20:04> Review of Systems Narrative: GENERAL: Denies chills, fatigue, malaise, fever, sweats. HEENT: Denies sinus pain, ear pain, sore throat, difficulty swallowing, dizziness. RESPIRATORY: Denies dyspnea, cough, wheezing, hemoptysis, sputum. CARDIOVASCULAR: Denies chest pain, palpitations, orthopnea, edema, GASTROINTESTINAL: see HPI : Denies dysuria, frequency, incontinence, hematuria, urinary retention. MUSCULOSKELETAL: denies weakness, joint pain, or bony pain SKIN: Denies rash, skin lesions, or other NEUROLOGIC: Denies weakness, headache, numbness, change in speech, confusion, seizures, incoordination. PSYCHIATRIC: No concerning psychosocial issues. 12 point review of systems is negative except for those stated above Patient History <HORACIO Edmondson - Last Filed: 08/01/20 20:04> Medical History (Updated 08/01/20 @ 19:59 by HORACIO Edmondson) Pneumonia (Acute) Social History Smoking Status: Current every day smoker Smoking Status: Current every day smoker tobacco type: vaping alcohol intake frequency: holidays/special occasions only Substance Use Type: marijuana Exam <HORACIO Edmondson - Last Filed: 08/01/20 20:04> Narrative Exam Narrative: GENERAL: This is a well-nourished, well-developed patient, in no acute distress HEAD: Atraumatic. Normocephalic. No temporal or scalp tenderness. EYES: Pupils equal round and reactive. Extraocular motions intact. No scleral icterus. No injection or drainage. ENT: Nose without bleeding, purulent drainage or septal hematoma. Throat without erythema, tonsillar hypertrophy or exudate. Uvula midline. Airway patent. NECK: Trachea midline. No JVD or lymphadenopathy. Supple, nontender, no meningeal signs. CARDIOVASCULAR: Regular rate and rhythm RESPIRATORY: Clear to auscultation. Breath sounds equal bilaterally. No wheezes, rales, or rhonchi. no cough. No increased respiratory effort. No accessory muscle use. GASTROINTESTINAL: Abdomen soft, non-tender, nondistended. No hepato-splenomegaly, or palpable masses. No guarding. Active bowel sounds all 4 quadrants. EXTREMITIES: No clubbing, cyanosis, or edema. No joint tenderness, effusion, or edema noted. BACK: Nontender without deformity or crepitance. No flank tenderness. NEURO: AOx3. SKIN: No rash or erythema On visible skin Initial Vital Signs Initial Vital Signs: Vital Signs Temperature 97.4 F L 08/01/20 15:00 Pulse Rate 87 08/01/20 15:00 Respiratory Rate 18 08/01/20 15:00 Blood Pressure 130/93 H 08/01/20 15:00 Pulse Oximetry 98 08/01/20 15:00 <Mary Sue DO - Last Filed: 08/02/20 08:26> Initial Vital Signs Initial Vital Signs: Vital Signs Temperature 97.4 F L 08/01/20 15:00 Pulse Rate 87 08/01/20 15:00 Respiratory Rate 18 08/01/20 15:00 Blood Pressure 130/93 H 08/01/20 15:00 Pulse Oximetry 98 08/01/20 15:00 Scores <HORACIO Edmondson - Last Filed: 08/01/20 20:04> GCS Vaishali coma scale eye opening: Spontaneous Vaishali coma scale verbal response: Orientated Vaishali coma scale motor response: Obey commands Vaishali coma scale total score: 15 Course <HORACIO Edmondson - Last Filed: 08/01/20 20:04> Orders Ordered: Discontinued Medications Sodium Chloride (Normal Saline 0.9%) 1,000 mls @ 1,000 mls/hr IV BOLUS ONE Stop: 08/01/20 19:09 Last Infusion: 08/01/20 20:11 Dose: 0 mls/hr Documented by: Admin: 08/01/20 18:28 Dose: 1,000 mls/hr Documented by: KIMBERLY Sodium Chloride (Normal Saline 0.9%) 1,000 mls @ 1,000 mls/hr IV BOLUS PRN PRN Reason: Fluid replacement Metoclopramide HCl (Reglan) 10 mg IV NOW ONE Stop: 08/01/20 18:11 Last Admin: 08/01/20 18:28 Dose: 10 mg Documented by: KIMBERLY Ondansetron HCl (Zofran) 4 mg IV NOW ONE Stop: 08/01/20 18:11 Last Admin: 08/01/20 18:28 Dose: 4 mg Documented by: KIMBERLY Ondansetron HCl (Zofran) 4 mg IV NOW ONE Stop: 08/01/20 19:08 Vital Signs Vital signs: Vital Signs - 8 hr 08/01/20 15:00 08/01/20 17:22 Temperature 97.4 F L Pulse Rate 87 79 Respiratory Rate 18 16 Blood Pressure 130/93 H 113/79 Pulse Oximetry 98 95 <Mary Sue DO - Last Filed: 08/02/20 08:26> Orders Ordered: Discontinued Medications Sodium Chloride (Normal Saline 0.9%) 1,000 mls @ 1,000 mls/hr IV BOLUS ONE Stop: 08/01/20 19:09 Last Infusion: 08/01/20 20:11 Dose: 0 mls/hr Documented by: Admin: 08/01/20 18:28 Dose: 1,000 mls/hr Documented by: KIMBERLY Sodium Chloride (Normal Saline 0.9%) 1,000 mls @ 1,000 mls/hr IV BOLUS PRN PRN Reason: Fluid replacement Metoclopramide HCl (Reglan) 10 mg IV NOW ONE Stop: 08/01/20 18:11 Last Admin: 08/01/20 18:28 Dose: 10 mg Documented by: KIMBERLY Ondansetron HCl (Zofran) 4 mg IV NOW ONE Stop: 08/01/20 18:11 Last Admin: 08/01/20 18:28 Dose: 4 mg Documented by: KIMBERLY Ondansetron HCl (Zofran) 4 mg IV NOW ONE Stop: 08/01/20 19:08 Vital Signs Vital signs: Vital Signs - 8 hr 08/01/20 15:00 08/01/20 17:22 Temperature 97.4 F L Pulse Rate 87 79 Respiratory Rate 18 16 Blood Pressure 130/93 H 113/79 Pulse Oximetry 98 95 MDM - Abdominal Pain <MARÍA Edmondson-BC - Last Filed: 08/01/20 20:04> Differential Diagnosis Differential diagnosis: Likely abdominal pain, constipation, diverticulitis, gastroenteritis, pancreatitis and small bowel obstruction Lab Data Attestation: I reviewed the patient's lab results. Result diagrams: 08/01/20 18:22 08/01/20 18:22 Labs: Lab Results 08/01/20 08/01/20 08/01/20 Range/Units 18:22 18:22 18:22 WBC 13.9 H (4.5-11.0) X10^3/uL RBC 5.06 (4.0-5.2) X10^6/uL Hgb 14.7 (12.0-16.0) g/dL Hct 43.9 (36-46) % MCV 86.8 (80-100) fL MCH 29.1 (26-34) PG MCHC 33.6 (30-36) % RDW 14.1 (11.6-14.8) % Plt Count 424 H (150-400) X10^3/uL Neut % (Auto) 77.7 H (50-75) % Lymph % (Auto) 14.2 L (25-40) % [place] % (Auto) 7.3 (3-14) % Eos % (Auto) 0.4 L (2-4) % Baso % (Auto) 0.4 (0-2) % Neut # (Auto) 32926 H (2409-0303) /uL Lymph # (Auto) 2000 (5599-0232) /uL [place] # (Auto) 1000 H (0-900) /uL Eos # (Auto) 100 (0-450) /uL Baso # (Auto) 100 (0-100) /uL Sodium 132 L (137-145) mmol/L Potassium 3.7 (3.4-5.1) mmol/L Chloride 97 L (98-107) mmol/L Carbon Dioxide 27 (22-32) mmol/L BUN 7 (7-17) mg/dL Creatinine 0.62 (0.52-1.04) mg/dL Estimated GFR > 60.0 (>60) mL/min BUN/Creatinine Ratio 11.3 (6-22) Glucose 107 H (70-100) mg/dL Calcium 9.6 (8.4-10.2) mg/dL Magnesium 2.3 (1.6-2.3) mg/dL Total Bilirubin 1.2 (0.2-1.3) mg/dL AST 32 (14-36) IU/L ALT 38 H (<35) IU/L Alkaline Phosphatase 86 (38-126) U/L Total Protein 8.2 (6.3-8.2) g/dL Albumin 4.5 (3.5-5.0) g/dL Globulin 3.7 (1.7-4.1) g/dL Albumin/Globulin Ratio 1.2 (1.0-2.8) Urine RBC (0-5/HPF) Urine WBC (0-5/HPF) Ur Squamous Epith Cells (0-5/HPF) Urine Bacteria (None) Ur Culture Indicated? 11/13/20 Range/Units 18:30 WBC (4.5-11.0) X10^3/uL RBC (4.0-5.2) X10^6/uL Hgb (12.0-16.0) g/dL Hct (36-46) % MCV (80-100) fL MCH (26-34) PG MCHC (30-36) % RDW (11.6-14.8) % Plt Count (150-400) X10^3/uL Neut % (Auto) (50-75) % Lymph % (Auto) (25-40) % [place] % (Auto) (3-14) % Eos % (Auto) (2-4) % Baso % (Auto) (0-2) % Neut # (Auto) (4765-9685) /uL Lymph # (Auto) (0144-1437) /uL [place] # (Auto) (0-900) /uL Eos # (Auto) (0-450) /uL Baso # (Auto) (0-100) /uL Sodium (137-145) mmol/L Potassium (3.4-5.1) mmol/L Chloride (98-107) mmol/L Carbon Dioxide (22-32) mmol/L BUN (7-17) mg/dL Creatinine (0.52-1.04) mg/dL Estimated GFR (>60) mL/min BUN/Creatinine Ratio (6-22) Glucose (70-100) mg/dL Calcium (8.4-10.2) mg/dL Magnesium (1.6-2.3) mg/dL Total Bilirubin (0.2-1.3) mg/dL AST (14-36) IU/L ALT (<35) IU/L Alkaline Phosphatase (38-126) U/L Total Protein (6.3-8.2) g/dL Albumin (3.5-5.0) g/dL Globulin (1.7-4.1) g/dL Albumin/Globulin Ratio (1.0-2.8) Urine RBC 0-1/hpf (0-5/HPF) Urine WBC 0-1/hpf (0-5/HPF) Ur Squamous Epith Cells 1-5 /hpf (0-5/HPF) Urine Bacteria Occasional (0-1) D (None) Ur Culture Indicated? Cult not indicated Point of care testing: Point of Care Testing Test Results Negative Urine Dip Bedside Urine Glucose Negative Bedside Urine Bilirubin - Negative Bedside Urine Ketone +/- 5 Urine Specific [place] 1.010 Bedside Urine Occult Blood +/- Bedside Urine pH 7.0 Bedside Urine Protein - Negative Bedside Urine Urobilinogen - Negative Bedside Urine Nitrite - Negative Bedside Urine Leukocytes - Negative Esterase Imaging Data Abdominal x-ray: Radiologist's Impression: [address] [place] [id number] XRay Report Signed Patient: Angelica Cannon CMR#: [id number] : 2000Acct:[id number] Age/Sex: 19 / FDate of Service: 08/01/20 Loc: ED Accession Number: [id number] Procedure: XR acute abdomen series Ordering Provider: Kenya Orellana PROCEDURE: XR ACUTE ABDOMEN SERIES INDICATIONS: abd pain, inability to keep down fluids TECHNIQUE: One view chest and two views of the abdomen were acquired. COMPARISON: None. FINDINGS: Surgical changes and devices: None. Chest: Lungs are clear. Heart size is normal. No pleural effusions. No pneumoperitoneum. Abdomen: Bowel gas pattern is normal. No suspicious calcifications. Visualized solid organ contours appear normal. Bones: No suspicious bony lesions. Transitional anatomy of the lowest lumbar vertebra with spina bifida occulta present. IMPRESSION: 1. Nonspecific, nonobstructive bowel gas pattern. 2. No acute cardiopulmonary disease. Dictated by: Belen Faulkner M.D. on 08/01/2020 at 19:38 Approved by: Belen Faulkner M.D. on 08/01/2020 at 19:39 [facility] Narrative Medical decision making narrative: the patient is a 19-year-old female with history of marijuana related cyclic vomiting who presents with a chief complaint of marijuana related cyclic vomiting. She states she has not been able to keep anything down for the past few days. Her labs are grossly within normal limits, slight leukocytosis likely related to repeat vomiting. She feels much improved after the above-stated therapies nose willing to provide her with prescriptions of ondansetron and Reglan. The patient states that she is going to stop smoking marijuana as she gets so sick when she does. I congratulated her on this decision. Overall she feels much improved, and is able to keep down p.o. fluids and is requesting go. I discussed at length coming back to ER for any acute concerns such as abdominal pain with fever, inability keep down fluids etcetera. Prescriptions of ondansetron and Reglan provided. Patient has no questions or concerns upon discharge and state understanding of return precautions as well as follow-up care. <Mary Sue, DO - Last Filed: 08/02/20 08:26> Lab Data Labs: Lab Results 08/01/20 08/01/20 08/01/20 Range/Units 18:22 18:22 18:22 WBC 13.9 H (4.5-11.0) X10^3/uL RBC 5.06 (4.0-5.2) X10^6/uL Hgb 14.7 (12.0-16.0) g/dL Hct 43.9 (36-46) % MCV 86.8 (80-100) fL MCH 29.1 (26-34) PG MCHC 33.6 (30-36) % RDW 14.1 (11.6-14.8) % Plt Count 424 H (150-400) X10^3/uL Neut % (Auto) 77.7 H (50-75) % Lymph % (Auto) 14.2 L (25-40) % [place] % (Auto) 7.3 (3-14) % Eos % (Auto) 0.4 L (2-4) % Baso % (Auto) 0.4 (0-2) % Neut # (Auto) 05096 H (6081-6608) /uL Lymph # (Auto) 2000 (6993-3105) /uL [place] # (Auto) 1000 H (0-900) /uL Eos # (Auto) 100 (0-450) /uL Baso # (Auto) 100 (0-100) /uL Sodium 132 L (137-145) mmol/L Potassium 3.7 (3.4-5.1) mmol/L Chloride 97 L (98-107) mmol/L Carbon Dioxide 27 (22-32) mmol/L BUN 7 (7-17) mg/dL Creatinine 0.62 (0.52-1.04) mg/dL Estimated GFR > 60.0 (>60) mL/min BUN/Creatinine Ratio 11.3 (6-22) Glucose 107 H (70-100) mg/dL Calcium 9.6 (8.4-10.2) mg/dL Magnesium 2.3 (1.6-2.3) mg/dL Total Bilirubin 1.2 (0.2-1.3) mg/dL AST 32 (14-36) IU/L ALT 38 H (<35) IU/L Alkaline Phosphatase 86 (38-126) U/L Total Protein 8.2 (6.3-8.2) g/dL Albumin 4.5 (3.5-5.0) g/dL Globulin 3.7 (1.7-4.1) g/dL Albumin/Globulin Ratio 1.2 (1.0-2.8) Urine RBC (0-5/HPF) Urine WBC (0-5/HPF) Ur Squamous Epith Cells (0-5/HPF) Urine Bacteria (None) Ur Culture Indicated? 08/01/20 Range/Units 18:30 WBC (4.5-11.0) X10^3/uL RBC (4.0-5.2) X10^6/uL Hgb (12.0-16.0) g/dL Hct (36-46) % MCV (80-100) fL MCH (26-34) PG MCHC (30-36) % RDW (11.6-14.8) % Plt Count (150-400) X10^3/uL Neut % (Auto) (50-75) % Lymph % (Auto) (25-40) % [place] % (Auto) (3-14) % Eos % (Auto) (2-4) % Baso % (Auto) (0-2) % Neut # (Auto) (1023-1347) /uL Lymph # (Auto) (5722-3572) /uL [place] # (Auto) (0-900) /uL Eos # (Auto) (0-450) /uL Baso # (Auto) (0-100) /uL Sodium (137-145) mmol/L Potassium (3.4-5.1) mmol/L Chloride (98-107) mmol/L Carbon Dioxide (22-32) mmol/L BUN (7-17) mg/dL Creatinine (0.52-1.04) mg/dL Estimated GFR (>60) mL/min BUN/Creatinine Ratio (6-22) Glucose (70-100) mg/dL Calcium (8.4-10.2) mg/dL Magnesium (1.6-2.3) mg/dL Total Bilirubin (0.2-1.3) mg/dL AST (14-36) IU/L ALT (<35) IU/L Alkaline Phosphatase (38-126) U/L Total Protein (6.3-8.2) g/dL Albumin (3.5-5.0) g/dL Globulin (1.7-4.1) g/dL Albumin/Globulin Ratio (1.0-2.8) Urine RBC 0-1/hpf (0-5/HPF) Urine WBC 0-1/hpf (0-5/HPF) Ur Squamous Epith Cells 1-5 /hpf (0-5/HPF) Urine Bacteria Occasional (0-1) D (None) Ur Culture Indicated? Cult not indicated Point of care testing: Point of Care Testing Test Results Negative Urine Dip Bedside Urine Glucose Negative Bedside Urine Bilirubin - Negative Bedside Urine Ketone +/- 5 Urine Specific [place] 1.010 Bedside Urine Occult Blood +/- Bedside Urine pH 7.0 Bedside Urine Protein - Negative Bedside Urine Urobilinogen - Negative Bedside Urine Nitrite - Negative Bedside Urine Leukocytes - Negative Esterase Discharge Plan Departure Patient Disposition: Home Clinical Impression: Cyclic vomiting syndrome Discharge Date/Time: 08/01/20 20:24 Instructions: DI for Abdominal Pain-Adult, DI for Nausea -- Adult, DI for Vomiting -- Adult Activity Restrictions/Additional Instructions: Thank you for trusting us with your care today. As discussed, I sent 2 prescriptions to [facility] in [place]. please push fluids, focus on a light diet for the time being. Please avoid fried fatty foods, spicy foods etcetera as this can make Your nausea and vomiting worse. as discussed, please avoid using any marijuana as this can make your situation much worse. Please come back to the emergency department for any acute concerns such as abdominal pain with fever, inability keep down fluids etcetera Prescriptions: New ondansetron 4 mg tablet,disintegrating 4 mg PO Q6H PRN (Reason: nausea and vomiting) Qty: 14 RF: 0 metoclopramide HCl 10 mg tablet 10 mg PO Q6H PRN (Reason: nausea and vomiting) Qty: 14 RF: 0 No Action ondansetron 4 mg tablet,disintegrating 4 mg PO QID PRN (Reason: nausea and vomiting) Qty: 10 RF: 0 promethazine 25 mg suppository 25 mg [place] Q6H PRN (Reason: nausea and vomiting) Qty: 1 RF: 0 metoclopramide HCl [Reglan] 10 mg tablet 10 mg PO Q6H PRN (Reason: nausea and vomiting) Qty: 14 RF: 0 ondansetron 4 mg tablet,disintegrating 4 mg PO Q6H PRN (Reason: nausea and vomiting) Qty: 10 RF: 0 metoclopramide HCl [Reglan] 10 mg tablet 10 mg PO Q6H PRN (Reason: nausea and vomiting) Qty: 10 RF: 0 <Mary Sue DO - Last Filed: 08/02/20 08:26> Cosign ED Attending Abdiature Attestation: I was immediately available in the department for consultation. Documentation has been reviewed. I agree with assessment and plan.
[2020-08-01 20:00] VITALS: PULSE 72; O2SAT 100
[2020-08-01 20:14] VITALS: BP 126/67; PULSE 79; O2SAT 100
[2020-08-01 20:23] VITALS: BP 126/67; PULSE 76; RESP 14; O2SAT 100
== END 2020-08-01 20:24 | disposition home or self-care (01) ==
PROVIDERS: Emergency Provider Nurse Practitioner Family
DX: R11.15 Cyclical vomiting syndrome unrelated to migraine (principal)
CPT/HCPCS: 36415; 74022; 80053; 81003; 81015; 81025; 83735; 85025; 96361; 96374; 96375; 99284; J2405; J2765